=== PATIENT | female | born 2005 ===

== ENCOUNTER 2023-01-27 17:53 | Emergency (ER) | payer OTHER, SELFPAY ==
[2023-01-27 17:58] VITALS: BP 119/61; PULSE 85; RESP 18; TEMP 36.3; O2SAT 98; BMI 23.4
--- NOTE | 2023-01-27 18:16 | CRLHL7_ITS ---
For Patients: As a result of the Century Cures Act, medical imaging exams and procedure reports are released immediately into your electronic medical record. You may view this report before your referring provider. If you have questions, please contact your health care provider. INDICATION: Abdominal pain. TECHNIQUE: CT abdomen and pelvis acquired with 71 cc Isovue 370 IV contrast. COMPARISON: None. FINDINGS: Lower chest: Unremarkable. Liver: Unremarkable. Normal in size and attenuation. No suspicious masses. Gallbladder and bile ducts: Unremarkable. No stones or inflammation. No biliary dilatation. Pancreas: Unremarkable. No mass or inflammation. Spleen: Subtle ill-defined heterogeneity, likely related to perfusional changes/phase of contrast. Normal in size. No masses. Adrenal glands: Unremarkable. No nodules. Kidneys: Unremarkable. No suspicious masses, stones, or hydronephrosis. GI tract: Mild colonic stool burden. Normal in caliber. No sign of mass or inflammation. Appendix not definitely seen, however no right lower quadrant inflammatory changes. Vasculature: Abdominal aorta is normal in caliber. Mesenteric arteries are patent. Lymph nodes: No lymphadenopathy. Peritoneum/Abdominal Wall: Unremarkable. No sign of mass or infiltration. No free air or significant free fluid. Pelvis: Trace free fluid in the pelvis, likely physiologic. Bones: Unremarkable for age. IMPRESSION: Trace free fluid in the pelvis, likely physiologic. Otherwise, no acute intra-abdominal/pelvic abnormality. Mild colonic stool burden. Please note that all CT scans at this facility use dose modulation, iterative reconstruction, and/or weight-based dosing when appropriate to reduce radiation dose to as low as reasonably achievable. Dictated by Carlos Odell MD @ 01/27/2023 7:07:58 PM (Electronically Signed)
--- NOTE | 2023-01-27 18:18 | ED_ITS ---
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 Pain is in the epigastrium with occasional pain in the lower abdomen as well. She has had no chest pain shortness with orthopnea or PND. She has had no nausea no vomiting. Patient has a family history of inflammatory bowel disease but has no personal history. She did have some blood in her stool several days ago which has resolved. She has also had some diarrhea. Patient has a history of reflux but is no longer on omeprazole. She states that the pain in the epigastrium is similar to her reflux symptoms but lower. Patient has had no recent travel. She has had no change in her diet. 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 Patient states that she is not . Related Data Home Medications Medication Instructions Recorded Confirmed escitalopram oxalate 5 mg tablet 5 mg PO BID 01/27/23 01/27/23 Allergies Allergy/AdvReac Type Severity Reaction Status Date / Time Penicillins Allergy Intermediate Rash Verified 01/27/23 18:42 Review of Systems Status of ROS Reports: 10 or more systems reviewed and unremarkable except as noted in History and below [facility] Medical History (Updated 01/27/23 @ 19:23 by William Jacobs MD) Anxiety ?F41.9 - Anxiety disorder, unspecified (ICD-10) Social History Smoking Status: Never smoker Do you use any of these nicotine containing products: None How often do you have a drink containing alcohol: monthly or less AUDIT-C Alcohol total score: 1 Non-prescribed substance use: denies use Exam Narrative: Exam Narrative: EXAM GENERAL: Patient appears comfortable and well. EYES: No scleral icterus. LYMPH: No supraclavicular or cervical lymphadenopathy. SKIN: Visible skin seen during exam normal or with benign process only. EXT: No dependent lower extremity pedal edema. HEART: Regular rate and rhythm with no murmurs, rubs, or gallops. LUNGS: Clear to auscultation bilaterally with no crackles or wheezes. ABD: Soft, non tender, non distended. PSYCH: Good eye contact, speech is not pressured. Const: Vital Signs, click to edit/add: Vital Signs - 24 hr 01/27/23 17:58 Temperature 97.4 F L Pulse Rate [Pulse Oximeter] 85 Respiratory Rate 18 Blood Pressure [Ri ght Upper Arm] 119/61 Pulse Oximetry 98 Oxygen Delivery Me thod Room Air Course Course Hospital Course: Patient seen examined. Saline lock placed. Collected CBC CMP amylase urinalysis CT abdomen and pelvis. Vital Signs Vital signs: Initial Vital Signs Temperature 97.4 F L 01/27/23 17:58 Temperature Source Temporal Artery Scan 01/27/23 17:58 Pulse Rate 85 01/27/23 17:58 Respiratory Rate 18 01/27/23 17:58 Blood Pressure 119/61 01/27/23 17:58 Blood Pressure Mean 80 01/27/23 17:58 Pulse Oximetry 98 01/27/23 17:58 Oxygen Delivery Method Room Air 01/27/23 17:58 Vital Signs Temperature 97.4 F L 01/27/23 17:58 Pulse Rate 85 01/27/23 17:58 Respiratory Rate 18 01/27/23 17:58 Blood Pressure 119/61 01/27/23 17:58 Pulse Oximetry 98 01/27/23 17:58 Oxygen Delivery Method Room Air 01/27/23 17:58 Temperature 97.4 F L 01/27/23 17:58 Pulse Rate 85 01/27/23 17:58 Respiratory Rate 18 01/27/23 17:58 Blood Pressure 119/61 01/27/23 17:58 Pulse Oximetry 98 01/27/23 17:58 Oxygen Delivery Method Room Air 01/27/23 17:58 MDM - Abdominal Pain MDM Narrative Medical decision making narrative: Patient is a 17-year-old [place] [employer] student who presents with 6 days of abdominal pain. She has mild epigastric pain as well as crampy lower abdominal pain. laboratory studies including CBC CMP amylase are normal upon my review. CT of the abdomen pelvis is unremarkable. My exam today including vital signs also normal. This time I did recommend symptomatic treatment with Tylenol Motrin rest and fluids. I also recommended a 2 week course of omeprazole 20 mg in the morning daily. She will follow-up with her primary physician not improved. Differential Diagnosis Differential diagnosis: Likely abdominal pain, acute appendicitis, calculus of kidney, constipation, diverticulitis, endometriosis, gastroenteritis, pancreatitis and small bowel obstruction Lab Data Labs: Lab Results 01/27/23 Range/Units 18:30 WBC 6.88 (4.50-11.00) K/uL RBC 3.94 L (4.00-5.20) m/uL Hgb 12.5 (12.0-16.0) gm/dL Hct 38.2 (33.0-51.0) % MCV 97 (80-100) fL MCH 32 (26-34) pg MCHC 33 (32-36) gm/dL RDW Coeff of Tristan 12.0 (11.5-15.5) % Plt Count 234 (140-440) K/uL Neut % (Auto) 52.4 (42.0-72.0) % Lymph % (Auto) 38.4 (20-44) % [place] % (Auto) 6.3 (0.0-11.0) % Eos % (Auto) 2.2 (0.0-7.0) % Baso % (Auto) 0.6 (0.0-3.0) % Neut # (Auto) 3.61 (1.7-7.0) K/uL Lymph # (Auto) 2.64 (0.90-2.90) K/uL [place] # (Auto) 0.40 (0.00-0.90) K/UL Eos # (Auto) 0.15 (0.00-0.50) K/uL Baso # (Auto) 0.04 (0.00-0.30) K/uL Sodium 137 (135-149) mmol/L Potassium 4.2 (3.6-5.1) mmol/L Chloride 105 (96-114) mmol/L Carbon Dioxide 28 (20-32) mmol/L BUN 15 (5-24) mg/dL Creatinine 0.9 (0.6-1.2) mg/dL Estimated Creat Clear 94.12 Estimated GFR 94 ml/min Glucose 95 (60-115) mg/dL Calcium 8.6 L (8.7-10.8) mg/dL Total Bilirubin 0.5 (0.1-1.5) mg/dL AST 33 (12-35) U/L ALT 21 (4-35) U/L Alkaline Phosphatase 99 (40-150) U/L Total Protein 7.0 (6.0-8.3) g/dL Albumin 4.1 (3.3-5.0) g/dL Amylase 78 (18-89) U/L Urine Color Yellow (Yellow) Urine Appearance Clear (Clear) Urine pH 7.5 (5.0-8.5) Ur Specific [place] 1.015 (1.000-1.030) Urine Protein Negative (Negative) Urine Glucose (UA) Negative (Negative) Urine Ketones Negative (Negative) Urine Blood Negative (Negative) Urine Nitrite Negative (Negative) Urine Bilirubin Negative (Negative) Urine Urobilinogen 0.2 (0.2-1.0) Ur Leukocyte Esterase Negative (Negative) Discharge Plan Discharge Clinical Impression: Abdominal pain Patient Disposition: Home, Self-Care Condition: Stable Instructions: Abdominal Pain (ED) Additional Instructions: Advance diet activity as tolerated Tylenol Motrin as needed for pain Drink plenty of fluids. Omeprazole [id number] as Prilosec OTC 20 mg daily in the morning for 14 days. Activity Level: No Restrictions Discharge Diet: Regular Prescriptions: No Action escitalopram oxalate 5 mg tablet 5 mg PO BID Follow Up/Referrals: Provider,Not a Local [Primary Care Provider] - Stand Alone Forms: App Press Info Instructions
[2023-01-27 18:46] LABS: Appearance Urine Clear (Clear); Bilirubin Urine Negative (Negative); Blood Urine Negative (Negative); Color Urine Yellow (Yellow); Glucose Urine Negative (Negative); Ketones Urine Negative (Negative); Leukocyte Esterase Urine Negative (Negative); Nitrite Urine Negative (Negative); Protein Urine Negative (Negative); Specific Gravity Urine 1.015 (1.000-1.030); Urobilinogen Urine 0.2 (0.2-1.0); pH Urine 7.5 (5.0-8.5)
[2023-01-27 18:52] LABS: Basophils Absolute Auto 0.04 K/uL (0.00-0.30); Basophils Percent Auto 0.6 % (0.0-3.0); Eosinophils Absolute Auto 0.15 K/uL (0.00-0.50); Eosinophils Percent Auto 2.2 % (0.0-7.0); Hematocrit 38.2 % (33.0-51.0); Hemoglobin* 12.5 gm/dL (12.0-16.0); Immature Granulocytes Abs Auto 0.01 K/uL (0.00-0.30); Immature Granulocytes Pct Auto 0.1 %; Lymphocytes Absolute Auto 2.64 K/uL (0.90-2.90); Lymphocytes Percent Auto 38.4 % (20-44); Mean Corpuscular HGB Conc 33 gm/dL (32-36); Mean Corpuscular Hemoglobin 32 pg (26-34); Mean Corpuscular Volume 97 fL (80-100); Monocytes Percent Auto 6.3 % (0.0-11.0); Neutrophils Absolute Auto 3.61 K/uL (1.7-7.0); Neutrophils Percent Auto 52.4 % (42.0-72.0); Platelet Count* 234 K/uL (140-440); Red Blood Count 3.94 m/uL (4.00-5.20); White Blood Count* 6.88 K/uL (4.50-11.00)
[2023-01-27 18:53] LABS: Slide Review Reflex No
[2023-01-27 19:09] LABS: Albumin* 4.1 g/dL (3.3-5.0); Chloride* 105 mmol/L (96-114); Potassium* 4.2 mmol/L (3.6-5.1); Sodium* 137 mmol/L (135-149)
[2023-01-27 19:12] LABS: Alanine Aminotransferase* 21 U/L (4-35); Alkaline Phosphatase* 99 U/L (40-150); Aspartate Amino Transferase* 33 U/L (12-35); Bilirubin Total* 0.5 mg/dL (0.1-1.5); Blood Urea Nitrogen* 15 mg/dL (5-24); Calcium* 8.6 mg/dL (8.7-10.8); Carbon Dioxide* 28 mmol/L (20-32); Creatinine* 0.9 mg/dL (0.6-1.2); Est. Creatinine Clearance* 94.12; Estimated Glomerular Filt Rate 94 ml/min; Glucose* 95 mg/dL (60-115)
[2023-01-27 19:13] LABS: Amylase* 78 U/L (18-89)
== END 2023-01-27 19:59 | disposition home or self-care (01) ==
PROVIDERS: Emergency Provider Internal Medicine
DX: R10.9 Unspecified abdominal pain (principal)
CPT/HCPCS: 36415; 74177; 80053; 81003; 82150; 85025; 99283; 99284; 99285; Q9967

== ENCOUNTER 2023-05-30 13:29 | Outpatient (CLI) | payer OTHER, SELFPAY ==
--- NOTE | 2023-05-30 14:00 | CRLHL7_ITS ---
For Patients: As a result of the Century Cures Act, medical imaging exams and procedure reports are released immediately into your electronic medical record. You may view this report before your referring provider. If you have questions, please contact your health care provider. Indication: CHRONIC SINUSITIS Technique: Performed without IV contrast Comparison: None available Findings: Frontal sinuses: Clear. Ethmoid sinuses: Patchy opacification of the left posterior ethmoid air cells. Clear right ethmoid sinus. Maxillary sinuses: Small mucous retention cysts within the maxillary sinuses measuring up to 8 millimeters. Mild mucosal thickening within the maxillary sinuses present as well. The maxillary sinus drainage pathways are patent on both sides. Sphenoid sinuses: Clear, including both sphenoethmoidal recesses. Nasal Cavity: Leftward curvature nasal septum. Paradoxical turn of the right middle turbinate. No TMJ abnormalities identified. The visualized portions of the orbits, intracranial contents and upper soft tissue neck are grossly negative. Impression: 1. Mild bilateral maxillary sinus disease and mild left ethmoid sinus disease. 2. Leftward curvature of the anterior nasal septum. Please note that all CT scans at this facility use dose modulation, iterative reconstruction, and/or weight-based dosing when appropriate to reduce radiation dose to as low as reasonably achievable. Dictated by Familia Lopez MD @ 05/31/2023 8:26:49 AM (Electronically Signed)
== END 2023-05-30 13:30 | disposition home or self-care (01) ==
PROVIDERS: Visit Provider Otolaryngology
DX: J32.9 Chronic sinusitis, unspecified (principal); J32.0 Chronic maxillary sinusitis; J34.2 Deviated nasal septum
CPT/HCPCS: 70486

== ENCOUNTER 2023-07-24 19:57 | Outpatient (CLI) | payer OTHER, SELFPAY ==
--- NOTE | 2023-08-06 08:27 | W.PM.SLEEP ---
Sleep Study Details Details Interpreting Provider: Francisco Date of Sleep Study: 07/24/23 Sleep Study Details: STUDY TYPE:? Home unattended ? BMI:? 23.4 ORDERING PROVIDER:Jing Singh INDICATION:? Concerns about sleep apnea ? SLEEP SUMMARY:? 296.7 minutes monitored RESPIRATORY SUMMARY:? AHI 2.4 with minimal positional variation Low oxygen 83 8.1% of study oxygen less than 90% Snoring 5.4% PERIODIC LIMB MOVEMENTS OF SLEEP:? Not recorded during home study CARDIAC:? Range 41-119, mean 57.7 IMPRESSION:? The AHI is within normal limits. However there was significant oxygen desaturations during 8.1% of the study. Would recommend a repeat overnight oximetry study. If sleep disorder is strongly suspected would recommend an in-lab study with MSLT to follow. RECOMMENDATION: See impression
== END 2023-07-24 19:58 | disposition home or self-care (01) ==
PROVIDERS: Visit Provider Otolaryngology
DX: G47.30 Sleep apnea, unspecified (principal); G47.10 Hypersomnia, unspecified; R06.83 Snoring
CPT/HCPCS: 95806

== ENCOUNTER 2023-08-23 10:33 | Day surgery (SDC) | payer OTHER, SELFPAY ==
[2023-08-23] VITALS (10 sets, daily range): BP systolic 99–116; BP diastolic 53–74; PULSE 52–93; RESP 14–20; TEMP 36.2–36.6; O2SAT 99–100; BMI 22.6
[2023-08-23 11:07] LABS: Ur HCG Qualitative* Negative (Negative)
[2023-08-23] MEDS: LACTATED RINGERS 1000 ML 1,000 ML 100 ML IV (11:20)
[2023-08-23] MEDS: SODIUM CHLORIDE 0.9 % (FLUSH) 10 ML SYRINGE IVF (11:23)
[2023-08-23] MEDS: ETHYL CHLORIDE 1 APPLICATION 1 APPLIC TOPICAL (11:23)
[2023-08-23] MEDS: OXYMETAZOLINE (AFRIN) SOAK 1 EACH TOPICAL (11:38)
[2023-08-23] MEDS: COCAINE HCL 4 % 4 ML SOLUTION NOSTRIL-B (12:33)
[2023-08-23] MEDS: MUPIROCIN 1 GM PACKET 1 APPLIC TOPICAL (12:40)
[2023-08-23] MEDS: AYR SALINE NASAL GEL 1 APPLIC NOSTRIL-B (12:41)
[2023-08-23] MEDS: BUPIVACAINE 0.5%/EPINEPHRINE 0.9 MG (30.9 ML) INJECTION (12:48)
--- NOTE | 2023-08-23 12:52 | P.ENTPROC_ITS ---
Procedure Note Date of procedure: 08/23/23 Procedure: Preoperative diagnosis nasal obstruction, nasal headaches, recurrent bilateral maxillary rhinosinusitis, septal deviation, inferior turbinate hypertrophy right, right middle turbinate hypertrophy, chronic mucosal changes bilateral max illary sinuses Postoperative diagnosis same Procedure nasal septoplasty, submucous partial resection right inferior turbinate, endoscopic bilateral maxillary antrostomies with tissue removal utili zing image guidance Under general endotracheal anesthesia patient was prepped draped usual fashion nose decongested and injected. Septal deflection was limited area 3 and 4. The mucosa anterior to this was incised on the left-hand side and with a vertical incision. Mucosa was elevated from the septal deviation. The Midland dissector was used to cut through the cartilage and then elevated tunnel on the opposite side. Deflected portions of cartilage and bone were resected. A single piece was trimmed and returned to intraseptal space in the flap laid back down nicely. A stab incision was made in the anterior of the right inferior turbinate a tunnel created with a Midland dissector. The edi bone was outfractured and a conservative anterior submucous resection performed. The Coblation Wand was used to cauterize intramurally along the inferior 10% more posteriorly and for hemostasis. The right middle turbinate was medialized and crushed with the Huseyin forceps. The inferior quarter of the uncinate process was taken down and the opening the maxillary sinus enlarged to an 8 mm diameter. There was a moderate amount of polypoid mucosa surrounding the opening. This antrostomy was repeated on the left side in identical fashion. Specimens from the sinus os were labeled separately right and left and sent to pathology. A Merocel pack coated in Bactroban was placed in the middle meatus on each side. The patient procedure well was taken recovery in satisfactory condition. Blood loss during procedure less than 10 mL. Surgeon: Julio Dimas MD
--- NOTE | 2023-08-23 13:06 | W.ANESCHARGE ---
Anesthesia Charges Start Date/Time Anesthesia Start Date: 08/23/23 Anesthesia Start Time: 12:16 Stop Date/Time Anesthesia Stop Date: 08/23/23 Anesthesia Stop Time: 13:07
== END 2023-08-23 14:17 | disposition home or self-care (01) ==
PROVIDERS: Visit Provider Otolaryngology
PROC: (CPT 31231; principal; 2023-08-23 12:00)
DX: J34.2 Deviated nasal septum (principal); J32.0 Chronic maxillary sinusitis; J34.3 Hypertrophy of nasal turbinates; R51.9 Headache, unspecified
CPT/HCPCS: 30520; 30140; 31267; 00160; 81025; 88305; A9270; J0330; J1100; J2250; J2405; J2704; J3010; J7120

== ENCOUNTER 2024-01-17 08:01 | Outpatient (CLI) | payer OTHER, SELFPAY ==
[2024-01-17 09:23] LABS: Vitamin D 25 Hydroxy* 78 ng/mL (30-80)
[2024-01-18 20:25] LABS: Follicle Stimulating Hormone 4.7 IU/L; Luteinizing Hormone, Serum 10.8 IU/L
[2024-01-18 20:45] LABS: Total T3 115 ng/dL (80-200)
[2024-01-18 21:55] LABS: DHEAS 175 ug/dL (148-407)
[2024-01-21 17:25] LABS: Sex Hormone Binding Globulin 30 nmol/L (25-122); Testosterone, Free LC-MS/MS 4.4 pg/mL (0.8-7.4); Testosterone, LC-MS/MS 25 ng/dL (9-55)
== END 2024-01-17 08:02 | disposition home or self-care (01) ==
DX: N91.4 Secondary oligomenorrhea (principal); E55.9 Vitamin D deficiency, unspecified
CPT/HCPCS: 36415; 82306; 82627; 83001; 83002; 84270; 84402; 84403; 84443; 84480

== ENCOUNTER 2025-05-22 08:40 | Inpatient (IN) | payer OTHER, SELFPAY ==
--- OUTSIDE RECORDS SUMMARY | 2024-02-10 19:00 | XMS_ITS | Clinical Summary ---
Author Organization [facility] Address [address] [facility] [address] [place] [address] Care Team Providers Care Sales And Marketing Associate Name Role Phone JIL ZULEYMA Primary Care Physician Unavailab elam [phone] Attending Clinician Unavailable Payers Payer Name Policy Type Policy Number Effective Date Expira tion Date [facility] [id number] 2022-Pre [address] [address] [address]FPI [id number] 2022 00:00:00 Problems Condition Name Condition Details Condition Category Status Onset Date Resolution Date Last Treatment Date Treating Clinician Comments Hypothalami c hypogonadis m [id number] 05-08 00:00: 00 2023-05-08 00:00:00 Concussion with loss of consciousne ss [id number] 2020-09 00:00: 00 2021-09-01 00:00:00 Depressed mood [id number] 02-10 00:00: 00 2021-02-10 00:00:00 Recurrent sinus infections [id number] 06-08 00:00: 00 2019-06-08 00:00:00 Allergies, Adverse Reactions, Alerts Allergy Name Allergy Type Status Severity Reaction(s) Onset Date Inactive Date Treating Clinician Comments PENICILLINS Drug allergy Active 2009-07 00:00:0 0 Social History Patient History Answer Smoking Tobacco Use Never Smokeless Tobacco Use Never Passive Exposure Never Social Habit Start Date Stop Date Comments Gender identity Not on file Sexual orientation Not on fi le Tobacco use and exposure 2023-05-13 00:00:00 2023-04-30 4 00:00:00 Smoking Status Start Date Stop Date History of tobacco use History of tobacco use Never smoked tobacco 2023-05-13 00:00:00 Never smoked tobacco 2023-05-13 00:00:00 Social History Observation Date Gender identity Not on file 2023-09-24 15:34 :44 Medications Ordered Medication Name Filled Medication Name Start Date Stop Date Current Medication? Ordering Clinician Indication Dosage Frequency Signature (SIG) Comments Components norethindrn a-e estradiol-i lay (Loestrin Fe 10/19 (28-Day)) 1-20 mg-mcg TABS 2022-09 00:00: 00 Yes NPI 1{tbl} escitalopra m oxalate 10 mg tablet 2022-09 00:00: 00 02-12 00:00 :00 No NPI meloxicam (Mobic) 15 mg tablet 2022-09 00:00: 00 Yes Historical Provider 15mg escitalopra m oxalate 5 mg tablet 2022-09 00:00: 00 Yes NPI 5mg mupirocin (Bactroban) 2 % ointment 05-09 00:00: 00 05-09 06:59 :00 No Historical Provider predniSONE (Deltasone) 10 mg tablet 03-06 00:00: 00 Yes Historical Provider budesonide (Pulmicort) 0.5 mg/2 mL inhalation suspension 03-06 00:00: 00 03-01 06:59 :00 No Historical Provider .5mg cefdinir (OMNICEF) 300 mg capsule -18 00:00: 00 Yes Historical Provider 600mg norgestimat e-ethinyl estradioL (Tri-Sprint ec (28)) 0.18/0.215/ 0.25 mg-35 mcg TABS 8- 00:00: 00 Yes Historical Provider escitalopra m oxalate (Lexapro) 5 mg TABS 4-16 00:00: 00 Yes Historical Provider 5mg cefadroxil (DURICEF) 500 mg capsule 2021-0 2-10 00:00: 00 Yes Historical Provider Immunizations Ordered Immunization Name Filled Immunization Name Date Status Comments Refusal Reason Influenza, injectable, quadrivalent, preservative free 0.5 ml syringe [FLUZONE] Influenza, injectable, quadrivalent, preservative free 0.5 ml syringe [FLUZONE] 2022-08-28 00:00:00 Influenza, injectable, quadrivalent, preservative free 0.5 ml syringe [FLUZONE] Influenza, injectable, quadrivalent, preservative free 0.5 ml syringe [FLUZONE] 2022-08-28 00:00:00 Flu vaccine (IIV4), preservative-free 2022-08-28 00:00:00 meningococcal B vaccine, recombinant, OMV, adjuvanted meningococcal B vaccine, recombinant, OMV, adjuvanted 2022-05-02 00:00:00 Meningococcal B, OMV (Bexsero) 2022-05-02 00:00:00 meningococcal B vaccine, recombinant, OMV, adjuvanted meningococcal B vaccine, recombinant, OMV, adjuvanted 2022-04-04 00:00:00 Meningococcal B, OMV (Bexsero) 2022-04-04 00:00:00 COVID-19, mRNA, LNP-S, PF, 30 mcg/0.3 mL dose COVID-19, mRNA, LNP-S, PF, 30 mcg/0.3 mL dose 2021-09-27 00:00:00 SARS-COV-2 (COVID-19) vaccine, mRNA, spike protein, LNP, preservative free, 30 mcg/0.3mL dose SARS-COV-2 (COVID-19) vaccine, mRNA, spike protein, LNP, preservative free, 30 mcg/0.3mL dose 2021-09-27 00:00:00 Pfizer monovalent COVID-19 vaccine (PURPLE CAP) 2021-09-27 00:00:00 COVID-19, mRNA, LNP-S, PF, 30 mcg/0.3 mL dose COVID-19, mRNA, LNP-S, PF, 30 mcg/0.3 mL dose 2021-02-03 00:00:00 COVID-19, mRNA, LNP-S, PF, 30 mcg/0.3 mL dose COVID-19, mRNA, LNP-S, PF, 30 mcg/0.3 mL dose 2021-01-10 00:00:00 SARS-COV-2 (COVID-19) vaccine, mRNA, spike protein, LNP, preservative free, 30 mcg/0.3mL dose SARS-COV-2 (COVID-19) vaccine, mRNA, spike protein, LNP, preservative free, 30 mcg/0.3mL dose 2021-02-03 00:00:00 Pfizer monovalent COVID-19 vaccine (PURPLE CAP) 2021-02-03 00:00:00 SARS-COV-2 (COVID-19) vaccine, mRNA, spike protein, LNP, preservative free, 30 mcg/0.3mL dose SARS-COV-2 (COVID-19) vaccine, mRNA, spike protein, LNP, preservative free, 30 mcg/0.3mL dose 2021-01-10 00:00:00 [employer] monovalent COVID-19 vaccine (PURPLE CAP) 2021-01-10 00:00:00 Meningococcal, MCV4, unspecified conjugate formulation(groups A, C, Y and W-135) Meningococcal, MCV4, unspecified conjugate formulation(groups A, C, Y and W-135) 2020-05-03 00:00:00 Meningococcal MenACWY-D (Menactra) 2020-05-03 00:00:00 Human Papillomavirus 9-valent vaccine vial [GARDASIL 9] Human Papillomavirus 9-valent vaccine vial [GARDASIL 9] 2019-03-02 00:00:00 HPV, 9-valent (Gardasil 9) 2019-03-02 00:00:00 Human Papillomavirus 9-valent vaccine vial [GARDASIL 9] Human Papillomavirus 9-valent vaccine vial [GARDASIL 9] 2018-03-03 00:00:00 HPV, 9-valent (Gardasil 9) 2018-03-03 00:00:00 Tdap (> 7 yrs) 2015-01-24 00:00:00 Meningococcal MenACWY-D (Menactra) 2015-01-24 00:00:00 Flu vaccine 3yr+ TRI (PF) 2012-10-27 00:00:00 Flu vaccine 3yr+ TRI (PF) 2009-08-01 00:00:00 PPD 2009-02-28 00:00:00 DTaP 2009-01-26 00:00:00 Polio, inactivated (IPV) (Ipol) 2009-01-26 00:00:00 MMR (M-M-R II) 2008-01-16 00:00:00 Varicella (Varivax) 2008-01-16 00:00:00 Hep A, pediatric/adolescent 2007-01-29 00:00:00 Hep A, pediatric/adolescent 2006-01-08 00:00:00 DTaP 2005-06-27 00:00:00 MMR (M-M-R II) 2005-03-06 00:00:00 Varicella (Varivax) 2005-03-06 00:00:00 Pneumococcal conjugate (PCV7) (Prevnar 7) 2004-12-27 00:00:00 Hib-Hep B (Comvax) 2004-12-27 00:00:00 DTaP 2004-08-07 00:00:00 Flu Vaccine 6-35 months old 2004-08-07 00:00:00 Pneumococcal conjugate (PCV7) (Prevnar 7) 2004-06-28 00:00:00 Polio, inactivated (IPV) (Ipol) 2004-06-28 00:00:00 DTaP 2004-05-01 00:00:00 Hib,unspecified formulation 2004-05-01 00:00:00 Pneumococcal conjugate (PCV7) (Prevnar 7) 2004-05-01 00:00:00 Polio, inactivated (IPV) (Ipol) 2004-05-01 00:00:00 DTaP 2004-03-02 00:00:00 Hib-Hep B (Comvax) 2004-03-02 00:00:00 Pneumococcal conjugate (PCV7) (Prevnar 7) 2004-03-02 00:00:00 Polio, inactivated (IPV) (Ipol) 2004-03-02 00:00:00 Hep B, pediatric/adolescent 2003 00:00:00 Reason for Visit ReasonCommentsMedication Refill Health Concerns Section Text Date PHQ-9 Depression Total Score: 2 Unknown PHQ-2 Depression Total Score: 0 Unknown CARE TEAM Source Name Role Start Date End Date [facility] Care Care Team Zuleyma Cedillo DO Primary Care Provider active 2009-06-08 [facility] Care Team Zuleyma Cedillo DO [phone] active 2009-06-01
--- OUTSIDE RECORDS SUMMARY | 2025-04-21 11:30 | XMS_ITS | Encounter Summary ---
Author Organization [facility] and [facility] Practices Address [address] [place] [address] Care Team Providers Care Slipman Name Role Phone Joel Laquita EUBANKS Primary Care Provider [phone] Encounter Details Date Type Department Care Team (Latest Contact Info) Description 04/21/2025 9:30 AM PDT Ancillary Visit [facility] [id number] [place] [address] Laboratory examination ordered as part of a routine general medical examination; Hypothalamic hypogonadism (CMS/HCC); Routine screening for STI (sexually transmitted infection) Social History Tobacco Use Types Packs/Day Years Used Date Smoking Tobacco: Never Smokeless Tobacco: Never Alcohol Use Standard Drinks/Week Comments Yes 2 (1 standard drink = 0.6 oz pur e alcohol) not weekly AUDIT-C Answer Date Recorded Frequency of Alcohol Consumption Never 12/11/2018 Average Number of Drinks Not on file 019 Frequency of Binge Drinking Not on file 11/28 Overall Financial Resource Strain (CARDIA) Answe r Date Recorded How hard is it for you to pa y for the very basics like food, housing, medical care, and heating? Not very hard 03/11/2025 Hunger Vital Sign Answer Date Recorded Within the past 12 months, y ou worried that your food would run out before you got the money to buy more. Never true 03/11/20 25 Ran Out of Food in the Last Year Not on file 03/11/2025 PRAPARE - Transportation Answer Date Re corded In the past 12 months, has l ack of transportation kept you from medical appointments or from getting medications? No 03/11/2025 Lack of Transportation (Non-Medical) Not on file 03/11/2025 Housing Stability Vital Sign Answer Rojelio e Recorded Unable to Pay for Housing in the Last Year Not o n file 04/13/2024 Number of Places Lived in the Last Year Not on f ile 04/13/2024 In the last 12 months, was t here a time when you did not have a steady place to sleep or slept in a alf (including now)? No 04/13/2024 Housing Stability Vital Sign Answer Rojelio e Recorded Unable to Pay for Housing in the Last Year Not o n file 03/11/2025 Number of Times Moved in the Last Year Not on fi le 03/11/2025 At any time in the past 12 m onths, were you homeless or living in a alf (including now)? No 03/11/2025 Core Social Determinants of Health Screening Questions Answer Date Recorded Within the past 12 months, y ou worried that your food would run out before you got the money to buy more. Never true 03/11/2025 Food Insecurity Food Insecurity Present 03/11/20 25 At any time in the past 12 m onths, were you homeless or living in a alf (including now)? No 03/11/2025 How hard is it for you to pa y for the very basics like food, housing, medical care, and heating? Not very hard 03/11/2025 Physically Abused Not on file 03/11/2025 CORE SDOH Hidden Transportation Domain Source An swer Date Recorded In the past 12 months, has l ack of transportation kept you from medical appointments or from getting medications? No 03/11/2025 Lack of Transportation (Non-Medical) Not on file 03/11/2025 Comments Unknown Sex and Gender Information Value Date Recorded Sex Assigned at Not on file Legal Sex Female 1:12 PM PST Gender Identity Not on file Sexual Orientation Not on file documented as of this encounter Plan of Treatment Not on file documented as of this encounter Procedures Procedure Name Priority Date/Time Associated Diagnosis Comments NC CHYLMD TRACH DNA AMP PROBE Routine 04/21/2025 9:30 AM PDT Routine screening for STI (sexually transmitted infection) NC HEPATITIS C AB TEST Routine 04/21/2025 9:15 AM PDT Laboratory examination ordered as part of a routine general medical examination NC ASSAY OF CALCIUM IONIZED Routine 04/21/2025 9:15 AM PDT Hypothalamic hypogonadism (CMS/HCC) NC ASSAY OF VITAMIN D CALCIFEDIOL Routine 04/21/2025 9:15 AM PDT Hypothalamic hypogonadism (CMS/HCC) THYROID SCREEN (TSH) W/ REFLEX FREE T4 Routine 04/21/2025 9:15 AM PDT Hypothalamic hypogonadism (CMS/HCC) PTH, INTACT & CALCIUM Routine 04/21/2025 9:15 AM PDT Hypothalamic hypogonadism (CMS/HCC) NC LIPID PANEL Routine 04/21/2025 9:15 AM PDT Laboratory examination ordered as part of a routine general medical examination NC GLYCOSYLATED HEMOGLOBIN TEST Routine 04/21/2025 9:15 AM PDT Laboratory examination ordered as part of a routine general medical examination NC ASSAY OF FERRITIN Routine 04/21/2025 9:15 AM PDT Hypothalamic hypogonadism (CMS/HCC) COMPREHENSIVE METABOLIC PANEL W GFR Routine 04/21/2025 9:15 AM PDT Laboratory examination ordered as part of a routine general medical examination NC GENERAL HEALTH PANEL Routine 04/21/2025 9:15 AM PDT Hypothalamic hypogonadism (CMS/HCC) documented in this encounter Results * GC & CHLAMYDIA NUCLEIC ACID AMPLIFICATION (04/21/2025 9:30 AM PDT) CHLAMYDIA AMP RESULT Not Detected Not Detected 04/21/2025 10:40 PM PDT [facility] [phone] GC AMP RESULT Not Detected Not Detected 04/21/2025 10:40 PM PDT [facility] [phone] Comment: Negative results do not exclude the possibility of infection. Interpretation of all results must include clinical evaluation of the patient and other diagnostic procedures. This test was performed by [facility] Nucleic Acid Amplification (PCR) methodology. Urine (Urine) 04/21/2025 9:3 0 AM PDT 04/21/2025 9:48 AM PDT Laquita Maldonado DO LAB MICROBIOLOGY Final Result [facility] [address] [place], [place] [address] [facility] [phone] [address] [place] [address] * PTH, INTACT & CALCIUM (04/21/2025 9:15 AM PDT) PTH,Intact 26 14 - 64 pg/mL 04/24/2025 1:52 PM PDT [facility] [phone] Comment: Note Interpretive Guide Intact PTH Calcium Normal Parathyroid Normal Normal Hypoparathyroidism Low or Low Normal Low Hyperparathyroidism Primary Normal or High High Secondary High Normal or Low Tertiary High High Non-Parathyroid Hypercalcemia Low or Low Normal High For additional information, please refer to http://education.[employer]/faq/XTY163 (This link is being provided for informational/educational purposes only.) Calcium 9.3 8.6 - 10.2 mg/dL 04/26/2025 11:54 AM PDT [facility] [phone] Serum (Blood) 04/21/2025 9:1 5 AM PDT 04/21/2025 9:47 AM PDT [facility]arr[facility] - 04/26/2025 11:54 AM PDT Patient fasting Laquita Maldonado DO LAB CHEMISTRY Final Result [facility] [address] [place] [address] [facility] [phone] [address] [place] [address] * CALCIUM, IONIZED (04/21/2025 9:15 AM PDT) Pathologist [facility] Ionized Calcium 1.26 1.11 - 1.30 mmol/L 04/21/2025 2:25 PM PDT [facility] [phone] Comment: This test was developed and its performance characteristics determined by [place], [place]. It has not been cleared or approved by the U.S. Food and Drug Administration, which has determined that such approval is not necessary. Blood (Blood) 04/21/2025 9:1 5 AM PDT 04/21/2025 9:47 AM PDT Narrative [facility] - 04/21/2025 2:25 PM PDT Patient fasting Laquita Maldonado DO LAB CHEMISTRY Final Result Performing Organization Address City/[facility]/ZIP Co de Phone Number [facility] [address] [place], [place] [address] [facility] [phone] [address] [place] [address] * FERRITIN (04/21/2025 9:15 AM PDT) [facility] Ferritin 19 12 - 252 ng/mL 04/21/2025 12:58 PM PDT [facility] Serum (Blood) 04/21/2025 9:1 5 AM PDT 04/21/2025 9:47 AM PDT [facility] - 04/21/2025 12:58 PM PDT Patient fasting Laquita Maldonado DO LAB CHEMISTRY Final Result [facility] [address] [place] [address] * VITAMIN D (25 HYDROXY) (04/21/2025 9:15 AM PDT) Pathologist [facility] VitD,25-Hydroxy Tot 68 20 - 80 ng/mL 04/21/2025 3:17 PM PDT [facility] [phone] Comment: This Total 25-OHD assay measures the sum of 25-hydroxy vitamin D metabolites (D2 and D3) All ages: 20-50 ng/mL* There is no known benefit of values > 50 ng/mL Values > 80 ng/mL may be associated with toxicity *In patients with risk factors such as bone disease, values between 20-29 ng/mL may be insufficient, and values greater than 30 ng/mL may be more appropriate. Serum (Blood) 04/21/2025 9:1 5 AM PDT 04/21/2025 9:47 AM PDT [facility] - 04/21/2025 3:17 PM PDT Patient fasting us Laquita Maldonado DO LAB CHEMISTRY Final Result Performing Organization Address City/[facility]/ZIP Co de Phone Number [facility] [address] [place] [address] [facility] [phone] [address] [place] [address] * THYROID SCREEN (TSH) W/ REFLEX FREE T4 (04/21/2025 9:15 AM PDT) Pathologist [facility] TSH 1.56 0.34 - 4.82 uIU/mL 04/21/2025 12:07 PM PDT [facility] [phone] Serum (Blood) 04/21/2025 9:1 5 AM PDT 04/21/2025 9:47 AM PDT [facility] - 04/21/2025 12:07 PM PDT Patient fasting Laquita Maldonado DO LAB CHEMISTRY Final Result [facility] [address] [place] [address] [facility] [phone] [address] [place] [address] * (ABNORMAL) CBC WITH AUTOMATED DIFFERENTIAL (04/21/2025 9:15 AM PDT) Pathologist [facility] White Blood Cell Count 5.1 4.0 - 11.0 K/uL 04/21/2025 10:42 AM PDT [facility] [phone] Red Blood Cell Count 4.16 3.90 - 5.40 M/uL 04/21/2025 10:42 AM PDT [facility] [phone] Hemoglobin 12.9 12.0 - 15.5 g/dL 04/21/2025 10:42 AM PDT [facility] [phone] Hematocrit 40.0 35.0 - 47.0 % 04/21/2025 10:42 AM PDT [facility] [phone] MCV 96 80 - 100 fL 04/21/2025 10:42 AM PDT [facility] [phone] MCH 31.0 27.0 - 33.0 pg 04/21/2025 10:42 AM PDT [facility] [phone] MCHC 32.3 31.0 - 36.0 g/dL 04/21/2025 10:42 AM PDT [facility] [phone] RDW 12.4 <16.4 % 04/21/2025 10:42 AM PDT [facility] [phone] Platelet Count 273 150 - 400 K/uL 04/21/2025 10:42 AM PDT [facility] [phone] Differential Type Automated 04/21/2025 10:43 AM PDT [facility] [phone] Neutrophil % 46 % 04/21/2025 10:43 AM PDT [facility] [phone] Lymphocyte % 32 % 04/21/2025 10:43 AM PDT [facility] [phone] Monocyte % 6 % 04/21/2025 10:43 AM PDT [facility] [phone] Eosinophil % 15 % 04/21/2025 10:43 AM PDT [facility] [phone] Basophil % 1 % 04/21/2025 10:43 AM PDT [facility] [phone] Abs. Neutrophil 2.4 1.5 - 8.0 K/uL 04/21/2025 10:43 AM PDT [facility] [phone] Abs. Lymphocyte 1.7 0.6 - 3.5 K/uL 04/21/2025 10:43 AM PDT [facility] [phone] Abs. Monocyte 0.3 0.0 - 0.8 K/uL 04/21/2025 10:43 AM PDT [facility] [phone] Abs. Eosinophil 0.8(H) 0.0 - 0.5 K/uL 04/21/2025 10:43 AM PDT [facility] [phone] Abs. Basophil 0.0 0.0 - 0.2 K/uL 04/21/2025 10:43 AM PDT [facility] [phone] Blood (Blood) 04/21/2025 9:1 5 AM PDT 04/21/2025 9:47 AM PDT Narrative [facility] - 04/21/2025 10:43 AM PDT Patient fasting Laquita Maldonado DO LAB HEMATOLOGY Final Result [facility] [address] [place] [address] [facility] [phone] [address] [place] [address] * COMPREHENSIVE METABOLIC PANEL W GFR (04/21/2025 9:15 AM PDT) Sodium 142 136 - 145 mmol/L 04/21/2025 12:07 PM PDT [facility] [phone] Potassium 4.5 3.5 - 5.1 mmol/L 04/21/2025 12:07 PM PDT [facility] [phone] Chloride 109 98 - 110 mmol/L 04/21/2025 12:07 PM PDT [facility] [phone] CO2 (Bicarbonate) 30 21 - 32 mmol/L 04/21/2025 12:07 PM PDT [facility] [phone] Glucose 87 70 - 99 mg/dL 04/21/2025 12:07 PM PDT [facility] [phone] BUN 19 6 - 25 mg/dL 04/21/2025 12:07 PM PDT [facility] [phone] Creatinine 1.00 0.40 - 1.00 mg/dL 04/21/2025 12:07 PM PDT [facility] [phone] Comment:IDMS-traceable metho d Calcium 9.2 8.2 - 10.2 mg/dL 04/21/2025 12:07 PM PDT [facility] [phone] Total Protein 6.6 6.4 - 8.2 g/dL 04/21/2025 12:07 PM PDT [facility] [phone] Albumin 3.4 3.2 - 4.7 g/dL 04/21/2025 12:07 PM PDT [facility] [phone] Total Bilirubin 0.4 <1.1 mg/dL 12:07 PM PDT [facility] [phone] Alkaline Phosphatase 79 26 - 137 U/L 04/21/2025 12:07 PM PDT [facility] [phone] AST 19 0 - 37 U/L 04/21/2025 12:07 PM PDT [facility] [phone] ALT 21 0 - 60 U/L 04/21/2025 12:07 PM PDT [facility] [phone] eGFR 82 >60 See Cmnt 04/21/2025 12:07 PM PDT [facility] [phone] Comment: Units: mL/min/1.73 m2. Estimated glomerular filtration rate values are calculated using the CKD-EPI Creatinine 2020 equation (non-race based). Serum (Blood) 04/21/2025 9:1 5 AM PDT 04/21/2025 9:47 AM PDT Narrative [facility] - 04/21/2025 12:07 PM PDT Patient fasting Laquita Maldonado DO LAB CHEMISTRY Final Result [facility] [address] [place] [address] [facility] [phone] [address] [place] [address] * HEMOGLOBIN A1C (04/21/2025 9:15 AM PDT) Hemoglobin A1c 5.1 3.5 - 5.6 % 04/21/2025 10:39 AM PDT [facility] [phone] Average Glucose 100 mg/dL 10:39 AM PDT [facility] [phone] Comment: Hemoglobin A1c 5.7-6.4% Increased Risk of diabetes mellitus > or = 6.5% Consistent with diabetes mellitus ADA Therapeutic goal <7% HbA1c Additional action suggested >8% HbA1c Immediate action suggested >10% HbA1c Estimated average glucose is calculated using the equation eAG = (28.7 x HbA1c) - 46.7 %Hb A1c Estimated Average Glucose(eAG)mg/dL 5 97 6 126 7 154 8 183 9 212 10 240 11 269 Method is [facility] certified References: 1. [place] [employer] Standards of Medical Care in Diabetes. Diabetes Care 2009 33:S11-S61 2. Chriss THOMPSON et al. Translating the A1c assay into estimated average glucose values. Diabetes Care 2007 31:9544-9614 Blood (Blood) 04/21/2025 9:1 5 AM PDT 04/21/2025 9:47 AM PDT Narrative [facility] - 04/21/2025 10:39 AM PDT Patient fasting Laquita Maldonado DO LAB CHEMISTRY Final Result [facility] [address] [place] [address] [facility] [phone] [address] [place] [address] * LIPID PROFILE (04/21/2025 9:15 AM PDT) Pathologist [facility] Total cholesterol 159 <200 mg/dL 025 12:07 PM PDT [facility] [phone] Comment: Desirable: <200 mg/dL Borderline: 200 to 239 mg/dL High: >240 mg/dL Triglyceride 47 <150 mg/dL 04/21/2025 12:07 PM PDT [facility] [phone] Comment: Normal: <150 mg/dL Borderline High: 150 to 199 mg/dL High: 200 to 499 mg/dL Very High: > or = 500 mg/dL HDL cholesterol 74 >40 mg/dL 12:07 PM PDT [facility] [phone] Comment: High: > or = 60 mg/dL Low: <40 mg/dL LDL Calculated 76 <130 mg/dL 04/21/2025 12:07 PM PDT [facility] [phone] Comment: Optimal: <100 mg/dL Near Optimal: 100 to 129 mg/dL Borderline High: 130 to 159 mg/dL High: 160 to 189 mg/dL Very High: > or = 190 mg/dL Cholesterol to HDL Ratio 2.1 <5.0 04/21/2025 12:07 PM PDT [facility] [phone] VLDL (Calculated) 9 5 - 40 mg/dL 04/21/2025 12:07 PM PDT [facility] [phone] Serum (Blood) 04/21/2025 9:1 5 AM PDT 04/21/2025 9:47 AM PDT [facility] - 04/21/2025 12:07 PM PDT Patient fasting Laquita Maldonado DO LAB CHEMISTRY Final Result [facility] [address] [place] [address] [facility] [phone] [address] [place] [address] * HEPATITIS C ANTIBODY RFLX HCV RNA PCR (04/21/2025 9:15 AM PDT) Hepatitis C Antibody Non Reactive Non Reactive 04/21/2025 3:43 PM PDT [facility] [phone] Comment:Antibodies to HCV no t detected. Does not exclude early acute HCV infection. 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
--- OUTSIDE RECORDS SUMMARY | 2025-04-26 10:40 | XMS_ITS | Encounter Summary ---
Author Organization [facility] Practices Address [address] [place] [address] Care Team Providers Care Supervisor Dried Yeast Name Role Phone Laquita Maldonado DO Primary Care Provider [phone] Reason for Visit * Reason Comments Medication check Meloxicam Encounter Details Date Type Department Care Team (Late st Contact Info) Description 04/26/2025 8:40 AM PDT Video Visit [facility] [address] [place] [address] Laquita Maldonado DO [address] [place] [address] Sprain of medial collateral ligament of right knee, subsequent encounter (Primary Dx) Social History Tobacco Use Types Packs/Day Years [...] place to sleep or slept in a longterm (including now)? No 04/13/2024 Housing Stability Vital Sign Answer Rojelio e Recorded Unable to Pay for Housing in the Last Year Not o n file 03/11/2025 Number of Times Moved in the Last Year Not on fi le 03/11/2025 At any time in the past 12 m onths, were you homeless or living in a longterm (including now)? No 03/11/2025 Core Social Determinants of Health Screening Questions Answer Date Recorded Within the past 12 months, y ou worried that your food would run out before you got the money to buy more. Never true 03/11/2025 Food Insecurity Food Insecurity Present 03/11/20 25 At any time in the past 12 m onths, were you homeless or living in a longterm (including now)? No 03/11/2025 How hard is [...] on file documented as of this encounter Progress Notes * Laquita Maldonado DO - 04/22/2025 9:19 AM PDT Assessment & Plan - VIDEO VISIT Patient/Parent/Legal Guardian gave verbal authorization to the use of ambient listening technology and third democrat audio recording to assist with this clinical encounter. Assessment & Plan 1. 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 History of multiple knee injuries over the past three years, requiring management of symptoms to maintain athletic performance. - Prescribe meloxicam 15 mg oral daily with food, 30-day supply with one refill, to be picked up [facility] in [facility] to send to [place], where she attends college @ [employer]. - Advise to take meloxicam with food or milk to minimize gastrointestinal side effects. - Discuss potential risks of long-term meloxicam use, including gastrointestinal ulceration, bleeding, liver and kidney injury, and effects on blood counts. - Monitor liver and kidney function, and blood counts annually as part of routine labs. - meloxicam (MOBIC) 15mg Tab; Take one Tab by mouth daily with food Dispense: 30 Tab; Refill: 1 Left knee injuries Left knee plica removal in 2019 and avulsion fracture of the tibia in 2016. Currently, the left knee is asymptomatic with no pain or inflammation reported in the past five years. Follow-up Currently at home and will return to [place] on May 16. Plans for medication refills while at school were discussed to ensure continuity of care. - Send meloxicam prescription to [facility] in [place], [place] if needed after returning to school. - Schedule routine lab monitoring in one year. Additionally, I am providing longitudinal care which includes continuously being the focal point for all of the patient's health care services and ongoing medical care related to the following diagnoses documented above: (S83.132D) Sprain of medial collateral ligament of right knee, subsequent encounter (primary encounter diagnosis) Subjective - VIDEO VISIT Arsen Carreon is 19 year old female (patient of Laquita Maldonado DO) with PMH significant for Patient Active Problem List Diagnosis Date Noted Surveillance for control, oral contraceptives 03/11/2025 Secondary oligomenorrhea 04/14/2024 - evaluated @ [facility] Dr. Griffith 03/18/2024: improved menstrual regularities with improved caloric intake. Some concern for PCOS with LH/FSH ratio. Testosterone and DHEA levels were wnl - working with form setter steel forms to improve proper fueling with soccer practices/game frequencies. - repeat LH, FSH, DHEA, TSH, T4, fT3, total T3 - soccer season start mid-Apr @ [employer] Anxiety 04/14/2024 Atrophy of quadriceps femoris muscle 04/14/2024 Maltracking of right patella 04/14/2024 MCL sprain of left knee 04/14/2024 Takes meloxicam PRN (up to 3d/week) for MCL sprain of b/l knee, but recently rt > lt. Lt knee fine, s/p medial plica removal. 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 Griffith ([facility]) 03/18/2024: improved menstrual regularities with improved caloric intake. Some concern for PCOS, but has never completed pelvic ultrasound. Testosterone and DHEA levels were wnl. 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 BMI normal and BMD normal. - Periods were only normal during COVID19 pandemic when she was at home - Normal thyroid function. - Continue follow-up with Dr. Griffith and sports health club membership advisors to increase caloric/nutritional intake - Reviewed [place] PCOS diagnosis criteria, which patient denies hyper androgenic features including hirsutism/acne/deepening of voice. will check pelvic ultrasound for polycystic ovaries. Explained that if ovaries are normal, then oligomenorrhea is likely 2/2 functional hypothalamic hypogonadism Strain of left quadriceps 04/28/2019 Nasal vestibulitis 03/10/2019 Chronic sinusitis s/p turbinate resection and septoplasty 12/11/2018 Snoring 12/11/2018 Tonsillar hypertrophy 12/11/2018 Acute atopic conjunctivitis 10/11/2010 Allergic rhinitis 11/23/2009 presenting today for evaluation of: History of Present Illness Arsen Carreon is a 19 year old female who presents for a #refill of meloxicam for right knee MCL sprain management. She has a history of multiple knee injuries over the past three years, primarily affecting her right knee. Currently, she is experiencing issues with her right knee due to an MCL sprain, which is exacerbated by her participation in college soccer. She manages inflammation and stiffness with meloxicam, taken approximately three times a week, depending on the intensity of her soccer practices and games. Her left knee has a history of a plica removal in 2019 and an avulsion fracture of the tibia in 2017. However, she reports no current pain or inflammation in that knee and has not had any injuries there in the past five years. 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 ROS: Except for what was stated above, the review of systems for constitutional, eyes, ears/nose/throat,neck, cardiovascular, respiratory, gastrointestinal, lymphatic, skin, genitourinary, musculoskeletal, endocrine, neurologic, and psychiatric was negative. Objective - VIDEO VISIT Physical assessment is limited due to video visit and instructions are given by provider to be performed by patient. There were no vitals taken for this visit. No O Home Vitals. Physical Exam: General Appearance: Alert, cooperative, no distress, appears stated age Respiratory: In no apparent respiratory distress, no visibile retractions, no audible wheezes, speaks in full sentences Skin: visualized areas of normal color, without pallor or rubor Video Visit Consent: The patient has given verbal or written consent for delivery of health care, via telehealth througha Video Visit appointment. Patient was using real-time Telehealth tools between my location and the patient's location which is confirmed to be in [place]. Prior to discussing medical issues, the patient provided informed verbal consent to perform this consultation using Telehealth tools, and all questions about the Telehealth interaction were answered. Patient confirms they are located in a safe location and within the state of [place]: YES Patient confirmed date of and the phone number where they can be reached in case video visit is disconnected. [phone] Dear Arsen Carreon: Although federal law now requires for digital medical records to be availablefor immediate access by patients, please remember that these notes are intended for communication between director of medical services and require medical terms to be used for accuracy and efficiency. They are not a comprehensive transcript of your visit and are not intended as a patient communication tool. Your doctor usually provides a patient-friendly after visit summary (AVS) associated with the visit with the diagnoses and treatment plan (please see your MHO manohar), particularly with regard to proper use of medications (e.g. duration, side effects) and suggestions for OTC products. Portions of this note may have been entered by my medical stenographer and/or by voice recognition software. I have reviewed and confirmed all information personally and amended the entries as necessary. Forestry Worker errors in syntax, word selection, grammar, and/or spelling may exist despite proofreading. Please contact me if you find any typographic errors. If you are reviewing this note and have questions about the content, please send me a message online. If a more detailed response is required, please schedule an appointment with us to discuss your specific concerns or bring it up at your next follow up visit. This note details my record of the events described at the time of the visit. It is part of a legalrecord and cannot be altered, even if subsequent information becomes available. Please remember that words and abbreviations used in a medical record may have different meanings than when they are used in common speech. If you feel there are errors in the content of this report, you may submit yourconcerns in writing to [email or web address] and [email or web address] so they may be addressed. The original report cannot be changed, however. documented in this encounter Nursing Notes * Fely Sharif MA - 04/26/2025 8:18 AM PDT Video Visit Consent:: The patient has given verbal or written consent for delivery of health care, via telehealth througha Video Visit appointment. Patient was using real-time Telehealth tools between my location and the patient's location which is confirmed to be in [place]. Prior to discussing medical issues, the patient provided informed verbal consent to perform this consultation using Telehealth tools, and all questions about the Telehealth interaction were answered. Patient confirms they are located in a safe location and within the state of [place]: Yes Patient states location at time of video visit is: at Home Address on File - [address] [facility] [address] Patient confirmed date of and the phone number where they can be reached in case video visit is disconnected. [phone] documented in this encounter Plan of Treatment Not on file documented as of this encounter Visit Diagnoses Diagnosis Sprain of medial collateral ligament of right knee, subsequent encounter- Primary documented in this encounter Care Teams Supervisor Dried Yeast Relationship Specialty Start Date End Date Laquita Maldonado DO [address] [place] [address] PCP - General Family Medicine 01/17/24 documented as of this encounter
--- OUTSIDE RECORDS SUMMARY | 2025-05-08 11:30 | XMS_ITS | Encounter Summary ---
Author Organization [facility] Practices Address [address] [place] [address] Care Team Providers Care Dev Manager Name Role Phone Joel Laquita EUBANKS Primary Care Provider [phone] Reason for Visit * Reason Comments Urinary tract infection Encounter Details Date Type Department Care Team (Late st Contact Info) Description 05/08/2025 9:30 AM PDT On-Demand Video Visit [facility] [address] [place] [id number] Roxana Marques MD [address] [place] [id number] Dysuria (Primary Dx) Social History Tobacco Use Types [...] place to sleep or slept in a chcf (including now)? No 04/13/2024 Housing Stability Vital Sign Answer Rojelio e Recorded Unable to Pay for Housing in the Last Year Not o n file 03/11/2025 Number of Times Moved in the Last Year Not on fi le 03/11/2025 At any time in the past 12 m onths, were you homeless or living in a chcf (including now)? No 03/11/2025 Core Social Determinants of Health Screening Questions Answer Date Recorded Within the past 12 months, y ou worried that your food would run out before you got the money to buy more. Never true 03/11/2025 Food Insecurity Food Insecurity Present 03/11/20 25 At any time in the past 12 m onths, were you homeless or living in a chcf (including now)? No 03/11/2025 How hard is [...] as of this encounter Progress Notes * Roxana Marques MD - 05/08/2025 9:58 AM PDT Assessment & Plan - VIDEO VISIT 1. Dysuria - lower urinary symptoms starting yesterday similar to past UTIs, no s/s of pyelo at this time. - discussed options, patient will go to the lab now to submit urine sample for culture then start empiric Macrobid - continue oral hydration and azo PRN -seek in-person evaluation if new/worsening symptoms like flank pain or fever Subjective - VIDEO VISIT Patient presents with: Urinary tract infection 1. Dysuria - x 1 day Patient reports waking yesterday with pelvic cramps and dysuria along with somewhat malodorous urine. Symptoms continue today but no fever/chills, nausea/vomiting, hematuria, or flank pain. She recalls having had 2 UTIs in the past, the last was approximately 1 year ago. She has been staying hydrated and taking azo PRN. Objective - VIDEO VISIT Physical assessment is limited due to video visit and instructions are given by provider to be performed by patient. There were no vitals taken for this visit. Physical Exam: General Appearance: Alert, cooperative, no [...] location which is confirmed to be in [place]. Prior to discussing medical issues, the patient provided informed verbal consent to perform this consultation using Telehealth tools, and all questions about the Telehealth interaction were answered. Patient confirms they are located in a safe location and within the state of [place]: Yes Patient states location at time of video visit is: [address] [place] [address] Patient confirmed date of and the phone number where they can be reached in case video visit is disconnected. [phone] Total minutes spent: 20 minutes in total in chart review in advance of the appointment (symptoms reported, previous consultations and evaluations, labs, imaging), documentation after appointment, andface to face time in counseling, evaluation and management related to this telehealth visit on the day of service. documented in this encounter Nursing Notes * Anabel Schwartz MA - 05/08/2025 9:50 AM PDT On-Demand Video Visit Care Team Rooming Note: Chief Complaint: Patient presents with: Urinary tract infection Home Vitals: respiratory rate: 20 Pulse:70 Oxygen:98 Verify Allergies: Allergies Allergen Reactions Penicillins Rash, Unspecified and Rash, urticarial Verify Tobacco Use: Tobacco Use: Low Risk (04/26/2025) Patient History Smoking Tobacco Use: Never Smokeless Tobacco Use: Never Passive Exposure: Not on file Verify LMP: No LMP recorded. Verified current meds? Yes Verified reconciliation as needed (meds/allergies/immunizations)? Yes Verified preferred pharmacy? Yes Photos needed/uploaded? No On-Demand Video Visit Consent: The patient (Arsen Carreon) has given verbal or written consent for delivery of health care, via telehealth through an On-Demand Video Visit appointment. Patient was using real-time Telehealth tools between my location and the patient's location which is confirmed to be in [place]. Prior to discussing medical issues, the patient provided informed verbal consent to perform this consultation using Telehealth tools, and all questions about the Telehealth interaction were answered. Patient gave authorization for ambient listening technology? YES, gave verbal authorization to use ambient listening technology and third libertarian audio recording to assist with this clinical encounter. Patient confirms they are located in a safe location and within the state of [place]: Yes Patient states location at time of video visit is (if outside home residence, indicate current location):at Home Address on File - [address] [facility] [address] documented in this encounter Plan of Treatment Not on file documented as of this encounter Results * (ABNORMAL) CULTURE, URINE (05/08/2025 11:10 AM PDT) Special Requests None 05/08/2025 10:58 AM PDT [facility] [phone] MICRO SETUP TIME 05/09/2025 12:43 AM 05/08/2025 10:58 AM PDT [facility] [phone] CULTURE 50,000 to 100,000 cfu/mL Escherichia coli(A) 05/10/2025 3:45 PM PDT [facility] [phone] Urine clean catch URINARY TRACT FLUIDS AND SPACES, CS / Unknown 05/08/2025 11:10 AM PDT 05/08/2025 11:37 AM PDT Narrative Organism Antibiotic Method Susceptibility Escherichia coli Ampicillin MICROBIOLOGY KATI >=32: Resistant Escherichia coli Cefepime MICROBIOLOGY KATI <=0.12: Sensitive Escherichia coli Cefoxitin MICROBIOLOGY KATI <=4: Sensitive Escherichia coli Ceftriaxone MICROBIOLOGY KATI <=0.25: Sensitive Comment: Ceftriaxone resistance may be used as a surrogate indicator of ESBL production. Escherichia coli Ciprofloxacin MICROBIOLOGY KATI 1: Resistant Escherichia coli Gentamicin MICROBIOLOGY KATI >=16: Resistant Escherichia coli Meropenem MICROBIOLOGY KATI <=0.25: Sensitive Escherichia coli Levofloxacin MICROBIOLOGY KATI 1: Intermediate Escherichia coli Nitrofurantoin MICROBIOLOGY KATI <=16: Sensitive Escherichia coli Piperacillin/Tazobactam MICROBIOLOGY KATI <=4: Sensitive Escherichia coli Trimethoprim/Sulfa MICROBIOLOGY KATI >=320: Resistant Escherichia coli Cefazolin (urine) MICROBIOLOGY KATI 8: Sensitive Comment: When treating uncomplicated UTI's due to E. coli, K. pneumoniae and P. mirabilis, cefazolin can be used to predict results for the following oral agents: cephalexin (Keflex), cefaclor (Ceclor), cefpodoxime (Vantin), cefprozil (Cefzil), cefuroxime (Ceftin), cefdinir (Omnicef), and loracarbef. Isolates showing resistance (I or R) to cefazolin but susceptible (S) to ceftriaxone may have variable susceptibility to cefpodoxime, cefdinir, and cefuroxime. Escherichia coli Ampicillin/Sulbactam MICROBIOLOGY KATI 16: Intermediate Roxana Marques MD LAB MICROBIOLOGY Final Result [facility] [address] [place], [place] [id number] [facility] [phone] [address] [place] [address] [facility] [phone] [address] [place] [address] documented in this encounter Visit Diagnoses Diagnosis Dysuria- Primary documented in this encounter Care Teams Dev Manager Relationship Specialty Start Date End Date Laquita Maldonado DO [address] [place] [phone] PCP - General Family Medicine 01/17/24 documented as of this encounter
--- OUTSIDE RECORDS SUMMARY | 2025-05-08 13:00 | XMS_ITS | Encounter Summary ---
Author Organization [facility] Practices Address [address] [place] [address] Care Team Providers Care Level Vial Marker Name Role Phone Joel Laquita EUBANKS Primary Care Provider [phone] Encounter Details Date Type Department Care Team (Late st Contact Info) Description 05/08/2025 11:00 AM PDT Ancillary Visit [facility] Medicine [facility] [address] [place] [address] Dysuria Social History Tobacco Use Types Packs/Day Years [...] place to sleep or slept in a correction (including now)? No 04/13/2024 Housing Stability Vital Sign Answer Rojelio e Recorded Unable to Pay for Housing in the Last Year Not o n file 03/11/2025 Number of Times Moved in the Last Year Not on fi le 03/11/2025 At any time in the past 12 m onths, were you homeless or living in a correction (including now)? No 03/11/2025 Core Social Determinants of Health Screening Questions Answer Date Recorded Within the past 12 months, y ou worried that your food would run out before you got the money to buy more. Never true 03/11/2025 Food Insecurity Food Insecurity Present 03/11/20 25 At any time in the past 12 m [facility], were you homeless or living in a correction (including now)? No 03/11/2025 How hard is [...] Procedure Name Priority Date/Time Associated Diagnosis Comments MI URINE CULTURE/COLONY COUNT Routine 05/08/2025 11:10 AM PDT Dysuria documented in this encounter Results * (ABNORMAL) CULTURE, URINE (05/08/2025 11:10 AM PDT) Special Requests None 05/08/2025 10:58 AM PDT [facility] [phone] MICRO SETUP TIME 05/09/2025 12:43 AM 05/08/2025 10:58 AM PDT [facility] [phone] CULTURE 50,000 to 100,000 cfu/mL Escherichia coli(A) 05/10/2025 3:45 PM PDT [facility] [phone] Urine clean catch URINARY TRACT FLUIDS AND [...] Roxana Marques MD LAB MICROBIOLOGY Final Result [facility] [address] [place], [place] [id number] [facility] [phone] [address] [place] [address] [facility] [phone] [address] [place] [address] documented in this encounter Visit Diagnoses Diagnosis Dysuria documented in this encounter Care Teams Level Vial Marker Relationship Specialty Start Date End Date Laquita Maldonado DO [address] [place] [phone] PCP - General Family Medicine 01/17/24 documented as of this encounter
[2025-05-22] VITALS (11 sets, daily range): BP systolic 82–133; BP diastolic 39–75; PULSE 67–116; RESP 16–24; TEMP 36.6–38; O2SAT 97–100; BMI 22.8; BMI 23.3
--- OUTSIDE RECORDS SUMMARY | 2025-05-22 08:43 | XMS_ITS | Encounter Summary ---
Author Organization [facility] Address [address] [place] [address] Care Team Providers Care Stay Cutter Name Role Phone Sandra Cedillo DO Primary Care Provider Sandra Cedillo DO Unavailable [phone] Encounter Details Date Type Department Care Team (Latest Contact Info) Description 05/15/2020 Orders Only [facility] DE[facility] Provider, MD [facility] Social History Tobacco Use Types Packs/Day Years Used Date Smoking Tobacco: Never Smokeless Tobacco: Never Alcohol Use Standard Drinks/Week Comments Not Asked 0 (1 standard drink = 0.6 oz pur e alcohol) Comments Unknown Sex and Gender Information Value Date Recorded Sex Assigned at Not on file Legal Sex Female 5:31 PM PDT Gender Identity Not on file Sexual Orientation Not on file documented as of this encounter Plan of Treatment Not on file documented as of this encounter Procedures Procedure Name Priority Date/Time Associated Diagnosis Comments [facility] OUTSIDE MRI - SCANNED 05/15/2020 12:00 AM PDT documented in this encounter Results * [facility] OUTSIDE MRI - SCANNED (05/15/2020 12:00 AM PDT) Anatomical Region Laterality Modality Other 05/15/[address] ORDERABLES Final Result documented in this encounter Visit Diagnoses Not on filedocumented in this encounter Additional Health Concerns Infection Onset Date Last Indicated Resolved Time PUI1 COVID-19 (2018-nCoV) 01/05/2022 01/05/2022 5:14 PM PDT COVID-19 (2019-nCoV) 01/05/2022 01/05/202201/25/ 022 10:52 PM PDT documented as of this encounter Care Teams Stay Cutter Relationship Specialty Start Date End Date Sandra Cedillo DO [address] [place] [address] PCP - General 06/08/09 Sandra Cedillo DO [address] [place] [address] PCP - Pediatrics 06/01/09 documented as of this encounter
--- OUTSIDE RECORDS SUMMARY | 2025-05-22 08:43 | XMS_ITS | Encounter Summary ---
Author Organization [facility] and [facility] Address [address] [place] [address] Care Team Providers Care Director Transportation Name Role Phone Sandra Cedillo DO Primary Care Provider [phone] Sandra Cedillo DO Unavailable [phone] Reason for Visit * Reason Comments Medication Refill Encounter Details Date Type Department Care Team ([facility] st Contact Info) Description 04/28/2024 Refill Pediatrics [address], [address] [place] [address] [phone] Sandra Cedillo DO [address] [place] [address] [id number] Social History Tobacco Use Types Packs/Day Years Used Date Smoking Tobacco: Never Passive Smoke Exposure: Never Smokeless Tobacco: Never Alcohol Use Standard [...] documented as of this encounter Visit Diagnoses Not on filedocumented in this encounter Additional Health Concerns Assessment Noted Time PHQ-9 Depression Total Score: 2 09/16/20 2:14 PM PST PHQ-2 Depression Total Score: 0 09/16/20 2:14 PM PST documented as of this encounter Care Teams Director Transportation Relationship Specialty Start Date End Date Sandra Cedillo DO [address] [place] [address] [phone] PCP - General 06/08/09 Sandra Cedillo DO [address] [place] [address] [phone] PCP - Pediatrics 06/01/09 documented as of this encounter
--- OUTSIDE RECORDS SUMMARY | 2025-05-22 08:43 | XMS_ITS | Clinical Summary ---
Author Organization [facility] and [facility] Address [address] [place] [address] Care Team Providers Care Associate Dean Of Women Name Role Phone Nguyen, Sandraeliseo Ramirez DO Primary Care Provider [phone] [place]Sandra forde Unavailable [phone] Source Comments This information has been disclosed to you from records protected by Federalconfidentiality rules (42 CFR Part 2). The Federal rules prohibit you frommaking any further disclosure of this informationunless further disclosure isexpressly permitted by the written consent of the person to whom it pertains oras otherwise permitted by 42 CFR Part 2. The information released containselements of the medical record deemed pertinent for the care of the patient.[facility] Allergies Active Allergy Reactions Criticality Noted Date Comments Penicillins Rash,Hives/urticaria Medium 08/17/2009 Per mom on 08/16/09 Medications cefadroxil (DURICEF) 500 mg capsule 11/09/2020 Active escitalopram oxalate (Lexapro) 5 mg TABS take 1 Tablet (5 mg total) by mouth every day 30 Tablet 01/13/2021 Active cetirizine HCl (ZYRTEC PO) take by mouth Acti ve norgestimate-et hinyl estradioL (Tri-Sprintec (28)) 0.18/0.215/0.25 mg-35 mcg TABS 05/01/2022 Acti ve cefdinir (OMNICEF) 300 mg capsule take 2 Capsules (600 mg total) by mouth daily 12/15/2022 Active predniSONE (Deltasone) 10 mg tablet 60mg PO QAM x2d then 50mg PO QAM x2d then 40mg PO QAM x2d then 30mg PO QAM x2d then 20mg PO QAM x2d then 10mg PO QAM x2d then stop 03/06/2023 Active meloxicam (Mobic) 15 mg tablet take 1 Tablet (15 mg total) by mouth daily as needed 09/10/2023 Active escitalopram oxalate 5 mg tablet take 1 Tablet (5 mg total) by mouth 08/13/2023 Active norethindrn a-e estradiol-iron (Loestrin Fe 10/19 (28-Day)) 1-20 mg-mcg TABS take 1 Tablet by mouth every day 28 Tablet 6 09/16/2023 Active escitalopram oxalate 10 mg tablet TAKE 1/2 TO 1 TABLET BY MOUTH DAILY DIRECTED 90 Tablet 02/13/2024 Active Active Problems Problem Noted Date Diagnosed Date 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 Concussion with loss of consciousness 09/01/2021 Depressed mood 02/10/2021 Recurrent sinus infections 06/08/2019 Immunizations Immunization Administration Dates Next Due DTaP 01/26/2009, 5,08/07/2004,05/01,03/02/2004 Flu Vaccine 6-35 months old 08/07/2004 Flu vaccine (IIV3), preservative-free 10/27/2012 ,08/01/2009 Flu vaccine (IIV4), preservative-free 08/28/2022 HPV, 9-valent (Gardasil 9) 03/02/2019,03/03/2018 Hep A, pediatric/adolescent 01/29/2007, 6 Hep B, pediatric/adolescent 2003 Hib,unspecified formulation 05/01/2004 Hib-Hep B (Comvax) 12/27/2004,03/02/2004 MMR 01/16/2008,03/06/2005 Meningococcal B, OMV (Bexsero) 05/02/2022,2021 Meningococcal MenACWY-D (Menactra) 05/03/2020, PPD 02/28/2009 Pfizer (PRE FALL 2022) monov alent COVID-19 vaccine (PURPLE CAP) 09/27/2021,02/03/2021,01/10/2021 Pneumococcal conjugate (PCV7 ) (Prevnar 7) 12/27/2004,06/28/2004,05/01/2004,03/02 Polio, inactivated (IPV) (Ipol) 01/27/20 09,06/28/2004,05/01/2004,03/02 Tdap (> 7 yrs) 01/24/2015 Varicella (Varivax) 01/16/2008,03/06/2005 Social History Tobacco Use Types Packs/Day Years Used Date Smoking Tobacco: Never Passive Smoke Exposure: Never Smokeless Tobacco: Never Tobacco Cessation:Counseling Given: Not Answered Alcohol Use Standard Drinks/Week Comments Not Asked 0 (1 standard drink = 0.6 oz pur e alcohol) Comments Unknown Sex and Gender Information Value Date Recorded Sex Assigned at Not on file Legal Sex Female 5:31 PM PDT Gender Identity Not on file Sexual Orientation Not on file Last Filed Vital Signs Vital Sign Reading Time Taken Comments Blood Pressure 108/70 09/16/2023 2:06 PM PST Pulse 67 09/16/2023 2:06 PM PST Temperature 36.7 C (98 F) 05/13/2023 9:36 AM PDT Respiratory Rate 20 06/10/2015 2:37 PM PDT Oxygen Saturation 99% 08/28/2022 9:3 3 AM PST Inhaled Oxygen Concentration - - Weight 63.3 kg (139 lb 9.6 oz) 05/09/2023 2:04 PM PDT patient did not want weight to be mentioned Height 167 cm (5' 5.75) 09/16/2023 2:0 6 PM PST Body Mass Index 22.03 04/17/2023 2:49 PM PDT Plan of Treatment Health Maintenance Due Date Last Done Comments HEPATITIS C SCREENING 2003 Hepatitis B Screening Discussion 2003 CHLAMYDIAL INFECTION SCREENING 2015 COVID-19 Vaccine ( season) 2024 09/27/2021, 02/03/2021, 01/10/2021 PAP SMEAR 12/27/2024 DTaP/Tdap/Td Immunizations (7 - Td or Tdap) 01/24/2025 01/24/2015, 01/26/2009, 06/27/2005, Additional history exists INFLUENZA VACCINE (#1) 2025 2, 10/27/2012, 08/01/2009 Pneumococcal Vaccine Aged Out 12/27/2004, 06/28/2004, 05/01/2004, Additional history exists No longer eligible based on patient's age to complete this topic HPV IMMUNIZATIONS Completed 03/02/2019, 03/03/2018 MCV4 IMMUNIZATIONS Completed 05/03/2020, 0 05/03/2020, 01/24/2015 Insurance R Care Teams Associate Dean Of Women Relationship Specialty Start Date End Date Sandra Cedillo DO [address] [place] [id number] PCP - General 06/08/09 Sandra Cedillo DO [address] [place] [id number] PCP - Pediatrics 06/01/09
--- OUTSIDE RECORDS SUMMARY | 2025-05-22 08:43 | XMS_ITS | Clinical Summary ---
Author Organization [facility] Address [address] [facility], [place] [address] [place] [address] Care Team Providers Care Healthcare Consulting Manager Name Role Phone Sandra Cedillo DO Primary Care Provider [phone] Source Comments These records are disclosed for treatment purposes as permitted by state and federal privacy law. Any further disclosure may only be done as permitted by law or with the patient's written authorization.[facility] Allergies Active Allergy Reactions Criticality Noted Date Comments Penicillins Hives Medium 06/19/2017 Medications cetirizine 10 mg Capsule Take by mouth. Active fluticasone (FLONASE) 50 mcg/spray nasal spray by nostrils (both) route daily. 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 Immunizations Immunization Administration Dates Next Due Pfizer COVID-19 Vaccine (Purple cap)-discontinue d 02/03/2021,01/10/2021 Social History Tobacco Use Types Packs/Day Years Used Date Smoking Tobacco: Never Assessed Comments Unknown Sex and Gender Information Value Date Recorded Sex Assigned at Not on file Legal Sex Female 7:12 AM PDT Gender Identity Not on file Sexual Orientation Not on file Last Filed Vital Signs Vital Sign Reading Time Taken Comments Blood Pressure - - Pulse - - Temperature - - Respiratory Rate - - Oxygen Saturation - - Inhaled Oxygen Concentration - - Weight 18.8 kg (41 lb 7.1 oz) 12/16/2009 3:14 PM PDT Height 110.5 cm (3' 7.5) 12/16/2009 3:14 PM PDT Body Mass Index 15.4 12/16/2009 3:14 PM PDT Plan of Treatment Health Maintenance Due Date Last Done Comments MMR vaccines (1 of 1 - Standard series) 12/27/2004 Well Visit 12/27/2006 DTaP / Tdap / Td vaccines (1 - Tdap) 12/27/2010 Varicella vaccines (1 of 2 - 13+ 2-dose series) 12/27/2016 HPV vaccines (1 - 3-dose series) 12/27/2018 Meningococcal B vaccine (1 o f 2 - Standard) 2019 Hepatitis B vaccines (1 of 3 - 19+ 3-dose series) 12/27/2022 COVID-19 Vaccine (4 - 2023-2 5 season) 2024 09/27/2021, 02/03/2021, 01/10/2021 PCHA Pap Smear 12/27/2024 Influenza Vaccine (#1) 2025 Hepatitis A vaccines Aged Out No long er eligible based on patient's age to complete this topic Hib vaccines Aged Out No longer eligi ble based on patient's age to complete this topic Meningococcal (ACYW) vaccine Aged Out No longer eligible based on patient's age to complete this topic Pneumococcal (PCV) vaccines Aged Out No longer eligible based on patient's age to complete this topic Polio (IPV/OPV) vaccines Aged Out No longer eligible based on patient's age to complete this topic RSV <20 Months Aged Out No longer betzy gible based on patient's age to complete this topic Rotavirus vaccines Aged Out No longer eligible based on patient's age to complete this topic Care Teams Healthcare Consulting Manager Relationship Specialty Start Date End Date Sandra Cedillo DO [address] [place] [address] PCP - General Pediatrics 12/06/16
--- OUTSIDE RECORDS SUMMARY | 2025-05-22 08:43 | XMS_ITS | Encounter Summary ---
Author Organization [facility] and [facility] Address [address] [place] [address] Care Team Providers Care Braille Typist Name Role Phone Sandra Cedillo DO Primary Care Provider [phone] Sandra Cedillo DO Unavailable Reason for Visit * Reason Onset Date Comments Appointment/scheduling 04/17/2023 Encounter Details Date Type Department Care Team (Late st Contact Info) Description 04/17/2023 Telephone ObGyn [facility] [address] [facility], [facility] [address] [place] [address] Pcp, No Appointment/scheduling Social History Tobacco Use Types Packs/Day Years [...] on file documented as of this encounter Miscellaneous Notes * Telephone Encounter - Stephania Handy - 04/17/2023 2:31 PM PDT Bella mom called to say Arsen will be about 4 minutes late. documented in this encounter Plan of Treatment Not on file documented as of this encounter Visit Diagnoses Not on filedocumented in this encounter Additional Health Concerns Assessment Noted Time PHQ-9 Depression Total Score: 2 01/24/20 22 3:39 PM PDT PHQ-2 Depression Total Score: 0 01/24/20 22 3:39 PM PDT documented as of this encounter Care Teams Braille Typist Relationship Specialty Start Date End Date Sandra Cedillo DO [address] [place] [address] PCP - General 06/08/09 Sandra Cedillo DO [address] [place] [address] PCP - Pediatrics 06/01/09 documented as of this encounter
--- OUTSIDE RECORDS SUMMARY | 2025-05-22 08:43 | XMS_ITS | Encounter Summary ---
Author Organization [facility] and [facility] Address [address] [facility] [place] [address] Care Team Providers Care Account Receivable Associate Name Role Phone Joel Laquita EUBANKS Primary Care Provider [phone] Encounter Details Date Type Department Care Team (Late st Contact Info) Description 03/17/2025 Results Follow-Up [facility] [address] [place], [place] [id number] Anastasia Flower PA-C [address] [place] [phone] ARCHITECTURAL WOOD MODEL MAKER CYTOLOGY, HEPATITIS C ANTIBODY RFLX HCV RNA PCR, LIPID PROFILE, Additional followed-up results: 9 Social History Tobacco Use Types Packs/Day Years [...] place to sleep or slept in a snf (including now)? No 04/13/2024 Housing Stability Vital Sign Answer Rojelio e Recorded Unable to Pay for Housing in the Last Year Not o n file 03/11/2025 Number of Times Moved in the Last Year Not on fi le 03/11/2025 At any time in the past 12 m onths, were you homeless or living in a snf (including now)? No 03/11/2025 Core Social Determinants of Health Screening Questions Answer Date Recorded Within the past 12 months, y ou worried that your food would run out before you got the money to buy more. Never true 03/11/2025 Food Insecurity Food Insecurity Present 03/11/20 25 At any time in the past 12 m onths, were you homeless or living in a snf (including now)? No 03/11/2025 How hard is [...] Diagnoses Not on filedocumented in this encounter Care Teams Account Receivable Associate Relationship Specialty Start Date End Date Laquita Maldonado DO [address] [place] [phone] PCP - General Family Medicine 01/17/24 documented as of this encounter
--- OUTSIDE RECORDS SUMMARY | 2025-05-22 08:43 | XMS_ITS | Patient Health Record ---
Author Organization [facility] Address [address] [place] [phone] Care Team Providers Care Field Marketing Representative Name Role Phone Unknown, Unknown Primary Care Provider Unavailab Pj Foss Unavailable Allergies Allergen (clinical drug ingredient) Drug/Non Drug Allergy documented on EMR Reaction Allergy Type Onset Date Status Penicillin (uncoded) Fever, Hives Allergy Active Reason For Referral No Information Medications Medication SIG (Take, Route, Frequency, Duration) Notes Start Date End Date Status Escitalopram Oxalate 5 MG TAKE 1 TABLET BY MOUTH EVERY DAY FOR GENERALIZED ANXIETY DISORDER Oral; Duration: 90 Days Active Pam 1.5/30 1.5-30 MG-MCG TAKE 1 TABLE T BY MOUTH DAILY Oral; Duration: 84 Days Active Meloxicam 15 MG TAKE 1 TABLET BY CORIN TH DAILY NEEDED Oral; Duration: 20 Days Active Vital Signs Temperature 98.1 degrees Fahrenheit 12/22/2024 Blood pressure diastolic 64 mm Hg 12/22/2024 Blood pressure systolic 108 mm Hg 12/22/2024 Encounters Encounter Location Date Provider Diagnosis [facility] [address] [id number] 12/22/2024 Rlsouk Salazarmmajovany Chronic pansinusitis 473.8 ; Non-recurrent acute serous otitis media of right ear H65.01 and Dysfunction of right eustachian tube H69.91 [facility] [address] [phone] 12/22/2024 Pj Salazarmmajovany Assessments Encounter Date Diagnosis (ICD Code) Assessment Notes Treatment Notes Treatment Clinical Notes Section Notes 12/22/2024 Non-recurrent acute serous otitis media of right ear (ICD-10 - H65.01) 12/22/2024 Chronic pansinusitis (ICD9-CM - 473.8) 12/22/2024 Dysfunction of right eustachian tube (ICD-10 - H69.91) 12/22/2024 Other Cefdinir 300mg bid x 10 days Prednisone taper Plan Of Treatment No Information Insurance Providers Payer Name Payer Address Payer Phone Subscriber Number Group Number Insured Name Patient Relationship to Insured Coverage Start Date Coverage End Date [facility] [address] [place], [place] [id number] Arsen Carreon Self - patient is the insured Medical (General) History Medical History History ICD Code asthma: No Bleeding Disorder: No Cancer (type of cancer): No Chemotherapy: No congestive heart failure: No Diabetes: No emphysema: No Hearing Aids Worn: No Heart Attack: No heart valve: No Hepatitis: No HIV: No Hypertension: No Kidney disease: No noise exposure: No pneumonia: No Radiation: No tuberculosis: No Tumors: No Ulcers: No Surgical History Surgery Date(Month/Year) Septoplasty, turbinate resection, antral windows 08/24/2023
--- OUTSIDE RECORDS SUMMARY | 2025-05-22 08:44 | XMS_ITS | Clinical Summary ---
Author Organization [facility] Address [address] [place] [address] Care Team Providers Care Corrections Caseworker Name Role Phone No Ref-Primary, Physician Primary Care Provider Denzel Morgan MD Unavailable [phone] Rachel Talbert Unavailable Ely Griffith MD Unavailable Allergies Active Allergy Reactions Criticality Noted Date Comments Penicillins 10/04/2023 Medications levocetirizine (XYZAL) 5 MG tablet Take 5 mg by mouth every evening Active escitalopram (LEXAPRO) 5 MG tablet Take 5 mg by mouth daily Active norethindrone-e thinyl estradiol (MICROGESTIN 1.530) 1.5-30 MG-MCG tabletIndicatio ns:PCOS (polycystic ovarian syndrome) Take 1 tablet by mouth daily. 84 tablet 3 08/22/2024 Active Social History Tobacco Use Types Packs/Day Years Used Date Smoking Tobacco: Never Smokeless Tobacco: Never Tobacco Cessation:Counseling Given: Not Answered PHQ-2 Answer Date Recorded PHQ-2 Score 0 10/04/2023 Adolescent Education Answer Date Record ed Getting School Help Needed Not on file 07/03 Comments Unknown Sex and Gender Information Value Date Recorded Sex Assigned at Not on file Legal Sex Female 12:00 PM CDT Gender Identity Not on file Sexual Orientation Not on file Last Filed Vital Signs Vital Sign Reading Time Taken Comments Blood Pressure - - Pulse - - Temperature - - Respiratory Rate - - Oxygen Saturation - - Inhaled Oxygen Concentration - - Weight 64 kg (141 lb) 10/04/2023 10:06 AM RECEIVING TANK OPERATOR Height 167.6 cm (5' 6) 10/04/2023 10:06 AM RECEIVING TANK OPERATOR Body Mass Index 22.76 10/04/2023 10:06 AM RECEIVING TANK OPERATOR Plan of Treatment Health Maintenance Due Date Last Done Comments ADVANCE CARE PLANNING 2003 ANNUAL REVIEW OF HM ORDERS 2003 CHLAMYDIA SCREENING 2003 HIV SCREENING 12/27/2018 HEPATITIS C SCREENING 12/27/2021 COVID-19 VACCINE ( season) 2024 09/27/2021, 02/03/2021, 01/10/2021 PHQ-2 (once per calendar year) 2024 10/04/2023 PAP 12/27/2024 DTAP/TDAP/TD VACCINE (7 - Td or Tdap) 01/24/2025 01/24/2015, 01/26/2009, 06/27/2005, Additional history exists YEARLY PREVENTIVE VISIT 04/14/2025 04/14/20 24, 09/16/2023, 04/17/2023, Additional history exists INFLUENZA VACCINE (#1) 2025 2, 10/27/2012, 08/01/2009, Additional history exists ZOSTER VACCINE (1 of 2) 12/27/2053 HEPATITIS B VACCINE Completed 12/27/2004, 03/02/2004, 2003 PNEUMOCOCCAL VACCINE: PEDIATRICS (0 to 5 YEARS) AND AT-RISK PATIENTS (6 to 49 YEARS) Aged Out 12/27/2004, 06/28/2004, 05/01/2004, Additional history exists No longer eligible based on patient's age to complete this topic HPV VACCINE Completed 03/02/2019, 03/03/2018 MENINGITIS VACCINE Completed 05/03/2020, 01/24/2015 MENINGITIS B VACCINE Completed 05/02/2022, 04/04/20 22 Insurance [facility] [place] [place] [address] CHOICE Care Teams Corrections Caseworker Relationship Specialty Start Date End Date No Ref-Primary, Physician PCP - General 01/11/23 Denzel Morgan MD [address] [address] [place] [phone] Otolaryngology 01/11/23 Rachel Talbert AuD [address] [facility] [place] [phone] Aquatic Instructor Audiology 01/11/23 Ely Griffith MD [address] [place] [address] Assigned Musculoskeletal Provider 10/24/23
--- OUTSIDE RECORDS SUMMARY | 2025-05-22 08:44 | XMS_ITS | Encounter Summary ---
Author Organization [facility] Practices Address [address] [facility] [place] [address] Care Team Providers Care Oyster Sorter Name Role Phone Joel Laquita EUBANKS Primary Care Provider [phone] Encounter Details Date Type Department Care Team (Late st Contact Info) Description 05/09/2025 Results Follow-Up [facility] [address] [place] [address] Roxana Marques MD [address] [place] [phone] CULTURE, URINE Social History Tobacco Use Types Packs/Day Years [...] place to sleep or slept in a long-term (including now)? No 04/13/2024 Housing Stability Vital Sign Answer Rojelio e Recorded Unable to Pay for Housing in the Last Year Not o n file 03/11/2025 Number of Times Moved in the Last Year Not on fi le 03/11/2025 At any time in the past 12 m onths, were you homeless or living in a long-term (including now)? No 03/11/2025 Core Social Determinants of Health Screening Questions Answer Date Recorded Within the past 12 months, y ou worried that your food would run out before you got the money to buy more. Never true 03/11/2025 Food Insecurity Food Insecurity Present 03/11/20 25 At any time in the past 12 m onths, were you homeless or living in a long-term (including now)? No 03/11/2025 How hard is [...] on filedocumented in this encounter Care Teams Oyster Sorter Relationship Specialty Start Date End Date Laquita Maldonado DO [address] [place] [phone] PCP - General Family Medicine 01/17/24 documented as of this encounter
--- OUTSIDE RECORDS SUMMARY | 2025-05-22 08:44 | XMS_ITS | Encounter Summary ---
Author Organization [facility] Practices Address [address] [facility] [place] [address] Care Team Providers Care Rn Corrections Name Role Phone Laquita Maldonado DO Primary Care Provider [phone] Encounter Details Date Type Department Care Team (Late st Contact Info) Description 05/21/[address] [address] [employer], [facility] [address] [place] [address] Social History Tobacco Use Types Packs/Day Years [...] place to sleep or slept in a [place] (including now)? No 04/13/2024 Housing Stability Vital Sign Answer Rojelio e Recorded Unable to Pay for Housing in the Last Year Not o n file 03/11/2025 Number of Times Moved in the Last Year Not on fi le 03/11/2025 At any time in the past 12 m [facility], were you homeless or living in a [place] (including now)? No 03/11/2025 Core Social Determinants of Health Screening Questions Answer Date Recorded Within the past 12 months, y ou worried that your food would run out before you got the money to buy more. Never true 03/11/2025 Food Insecurity Food Insecurity Present 03/11/20 25 At any time in the past 12 m [facility], were you homeless or living in a [place] (including now)? No 03/11/2025 How hard is [...] encounter Miscellaneous Notes * Telephone Encounter - Chad Cazares - 05/21/2025 1:05 PM PDT Hi Ms. Carreon, Your video visit has been scheduled for May 27 at 3:[address] Maldonado. If for any reason this date and time does not work, please let us know. Video visits work best on your tablet (e.g. iPad) or smartphone. WHAT TO DO NOW: Log into [employer] and test your hardware. If you don't have it, you can download it for free from the [employer] Store or [employer]. [employer] Store: [employer] Boom [employer] Store: [employer] Go to the Appointment section, select the scheduled video visit and click the link to test your hardware. If there any issues you will be able to fix them before your visit. Up to 7 days ahead of your appointment, please use e[employer] Arrival to complete information needed for your video visit. Go to the Appointment section, select the scheduled video visit and click the eZ Arrival button to do the following: Provide electronic Consent for Video Visit. Complete the Home Vitals Questionnaire. Pay your co-pay. Update your personal information including Medications and Allergies. Tell your doctor any health issues you're having. ON THE DAY OF APPOINTMENT: You can join the Video Visit either of these two ways: Mobile: Join from your mobile device using the [employer] boom on your smart phone or tablet. Computer: If your computer has a web camera and microphone, go to the Appointments section of [email or web address] and start your video visit. Be sure to complete the EZ Arrival process, including the questionnaires available within [employer]. Reminder: Be sure you have completed the above EZ Arrival process before your video visit begins. You can also access step by step instructions and other helpful resources here: [email or web address] For your video visit, please find a private, well-lit spot. Sign into [employer] 15 minutes before your appointment, and click Begin Visit. Headphones are optional but can useful for audio quality and privacy. Your provider will appear when ready for your visit. If you have issues, please contact our [employer] Service Desk at . We look forward to seeing you soon. Best, Your Care Team documented in this encounter Plan of Treatment Not on file documented as of this encounter Visit Diagnoses Not on filedocumented in this encounter Care Teams Rn Corrections Relationship Specialty Start Date End Date Laquita Maldonado DO [address] [place] [id number] PCP - General Family Medicine 01/17/24 documented as of this encounter
--- OUTSIDE RECORDS SUMMARY | 2025-05-22 08:44 | XMS_ITS | Clinical Summary ---
Author Organization [facility] Address [address] [place] [address] Care Team Providers Care Web Production Designer Name Role Phone Laquita Maldonado DO Primary Care Provider [phone] Source Comments This information has been disclosed to you from records protected by Federal confidentiality rules (42 CFR part 2). The Federal rules prohibit you from making any further disclosure of this information unless further disclosure is expressly permitted by the written consent of the person to whom it pertains or as otherwise permitted by 42 CFR part 2. A general authorization for the release of medical or other information is NOT sufficient for this purpose. The Federal rules restrict any use of the information to criminally investigate or prosecute any alcohol or drug abuse patient.[facility] Allergies Active Allergy Reactions Criticality Noted Date Comments Penicillins Rash, Unspecified,Rash, urticarial High 02/10/2009 Medications levocetirizine (XYZAL) 5 MG Tab Take one Tab by mouth daily 06/06/20 23 Active escitalopram (LEXAPRO) 5mg TabIndications:Ge neralized Anxiety Disorder Take one Tab by mouth daily Indications: Generalized Anxiety Disorder 90 Tab 1 03/26/20 25 Active meloxicam (MOBIC) 15mg TabIndications:Sp rain of medial collateral ligament of right knee, subsequent encounter Take one Tab by mouth daily with food 90 Tab 3 05/14/20 25 Active norethindrone acetate/ethinyl estradiol (JUNEL ) 1.5-30 MG-MCG TabIndications:Se condary oligomenorrhea Take 1 Tab by mouth daily 84 Tab 3 05/14/20 25 Active meloxicam (MOBIC) 15mg Tab Take one Tab by mouth daily with food 09/10/20 23 025 Discontinue d(Reorder - NO pharmacy notice and NO AVS printing) norethindrone acetate/ethinyl estradiol (JUNEL 1.5) 1.5-30 MG-MCG Tab Take 1 Tbs by mouth daily 08/22/20 24 025 Discontinue d(Reorder - NO pharmacy notice and NO AVS printing) meloxicam (MOBIC) 15mg TabIndications:Sp rain of medial collateral ligament of right knee, subsequent encounter Take one Tab by mouth daily with food 30 Tab 1 04/26/20 25 025 Discontinue d(Reorder - NO pharmacy notice and NO AVS printing) nitrofurantoin (MACROBID) 100mg CapIndications:Dy suria Take one Cap by mouth twice daily for 7 days 14 Cap 05/08/20 25 025 Active Problems Problem Noted Date Diagnosed Date Surveillance for control, oral contracepti ves 03/11/2025 Secondary oligomenorrhea 04/14/2024 Overview (04/14/2024): - evaluated @ [facility] Dr. Griffith 03/18/2024: improved menstrual regularities with improved caloric intake. Some concern for PCOS with LH/FSH ratio. Testosterone and DHEA levels were wnl - working with licensed embalmer supervisor to improve proper fueling with soccer practices/game frequencies. - repeat LH, FSH, DHEA, TSH, T4, fT3, total T3 - soccer season start mid-Apr @ [facility] 04/14/2024 Atrophy of quadriceps femoris muscle 04/14/2024 Maltracking of right patella 04/14/2024 MCL sprain of left knee 04/14/2024 Overview (04/26/2025): Takes meloxicam PRN (up to 3d/week) for MCL sprain of b/l knee, but recently rt > lt. Lt knee fine, s/p medial plica removal. 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 Griffith ([facility]) 03/18/2024: improved menstrual regularities with improved [...] - Continue follow-up with Dr. Griffith and community sports coordinator to increase caloric/nutritional intake - Reviewed [place] PCOS diagnosis criteria, which patient denies hyper androgenic features including hirsutism/acne/deepening of voice. will check pelvic ultrasound for polycystic ovaries. Explained that if ovaries are normal, then oligomenorrhea is likely 2/2 functional hypothalamic hypogonadism Strain of left quadriceps 04/28/2019 Nasal vestibulitis 03/10/2019 Chronic sinusitis s/p turbinate resection and se ptoplasty 12/11/2018 Snoring 12/11/2018 Tonsillar hypertrophy 12/11/2018 Acute atopic conjunctivitis 10/11/2010 Allergic rhinitis 11/23/2009 Resolved Problems Problem Noted Date Diagnosed Date Resolved Date Contusion of bone 04/14/2024 04/14/2024 JUANY (obstructive sleep apnea) 03/10/2019 04/14/2024 Nasal congestion 03/10/2019 04/14/2024 Bilateral impacted cerumen 03/10/2019 0 04/14/2024 Adenoid hypertrophy s/p adenoidectomy 03/10/2019 04/14/2024 Nasal turbinate hypertrophy 12/11/2018 04/14/2024 Deviated septum 12/11/2018 04/14/2024 Daytime somnolence 12/11/2018 Braham-Schlatter's disease of both knees 02/09/2016 04/14/2024 ALLERGIC URTICARIA (fresh pe ach, ?other fruits) 10/11/2010 04/14/2024 ANAPHYLAC RISK FRUITS 11/23/20092023 Encounters Date Type Department Care Team Description 05/21/[address] [address] [place], Tweegeehealthmaame huntley MD 05/09/2025 Results Follow-Up [facility] [address] [phone] Roxana Marques MD CULTURE, URINE 05/08/2025 11:00 AM PDT Ancillary Visit [address] [address] Dysuria 05/08/2025 9:30 AM PDT On-Demand Video Visit [facility] [address] [place] [phone] Roxana Marques MD Dysuria (Primary Dx) 04/26/2025 8:40 AM PDT Video Visit [address] [address] Laquita Maldonado DO Sprain of medial collateral ligament of right knee, subsequent encounter (Primary Dx) 04/21/2025 9:30 AM PDT Ancillary Visit [address] [address] Laboratory examination ordered as part of a routine general medical examination; Hypothalamic hypogonadism (CMS/HCC); Routine screening for STI (sexually transmitted infection) 03/17/2025 Results Follow-Up [address] [address] Anastasia Flower PA-C SISAL OPERATOR CYTOLOGY, HEPATITIS C ANTIBODY RFLX HCV RNA PCR, LIPID PROFILE, Additional followed-up results: 9 03/15/2025 8:35 AM PDT Ancillary Visit [address] [address] Cervical cancer screening 03/12/2025 3:00 PM PDT Office Visit [address] [address] Laquita Maldonado DO Encounter for routine adult physical exam with abnormal findings (Primary Dx); Laboratory examination ordered as part of a routine general medical examination; Cervical cancer screening; Routine screening for STI (sexually transmitted infection); Need for vaccination; Anxiety; Hypothalamic hypogonadism (CMS/HCC) from Last 3 Months Immunizations Immunization Administration Dates Next Due Tdap (ADACEL) 7-64 YRS 03/12/2025 Family History Medical History Relation Comments Coronary Artery Disease Maternal Grandfather s/p PCI and BAY Endometriosis Maternal Grandmother s/p BSO, to franck hysterectomy. Diseased 60syo Gallbladder Disease Maternal Grandmother Scleros ing cholangitis Hematologic Malignancy Maternal Grandmother Ulcerative Colitis Maternal Grandmother Relation Status Comments Brother Father Alive Maternal Grandfather Alive Maternal Grandmother Mother Alive Paternal Grandfather Alive Paternal Grandmother Alive Social History Tobacco Use Types Packs/Day Years Used Date Smoking Tobacco: Never Smokeless Tobacco: Never Tobacco Cessation:Counseling Given: Not Answered Alcohol Use Standard Drinks/Week Comments Yes 2 [...] place to sleep or slept in a penitentiary (including now)? No 04/13/2024 Housing Stability Vital Sign Answer Rojelio e Recorded Unable to Pay for Housing in the Last Year Not o n file 03/11/2025 Number of Times Moved in the Last Year Not on fi le 03/11/2025 At any time in the past 12 m [facility], were you homeless or living in a penitentiary (including now)? No 03/11/2025 Core Social Determinants of Health Screening Questions Answer Date Recorded Within the past 12 months, y ou worried that your food would run out before you got the money to buy more. Never true 03/11/2025 Food Insecurity Food Insecurity Present 03/11/20 At any time in the past 12 m [facility], were you homeless or living in a penitentiary (including now)? No 03/11/2025 How hard is [...] Sign Reading Time Taken Comments Blood Pressure 96/56 03/12/2025 2:51 PM PDT Pulse 74 03/12/2025 2:51 PM PDT Temperature 36.7 C (98 F) 12/12/2020 5:48 PM PDT Respiratory Rate 18 11/16/2019 2:30 PM PST Oxygen Saturation 99% 03/12/2025 2:51 PM PDT Inhaled Oxygen Concentration - - Weight 63.6 kg (140 lb 3.2 oz) 03/12/2025 2:51 P M PDT Height 167.3 cm (5' 5.87) 03/12/2025 2:51 PM PD T Body Mass Index 22.72 03/12/2025 2:51 PM PDT Plan of Treatment Health Maintenance Due Date Last Done Comments COVID-19 Vaccine ( season) 2024 09/27/2021, 02/03/2021, 01/10/2021 INFLUENZA VACCINE 06/30/2025 08/28/2022, , 08/01/2009, Additional history exists CHLAMYDIA SCREENING 04/21/2026 04/21/2025 CREATININE 04/21/2026 04/21/2025 GONORRHEA SCREENING 04/21/2026 04/21/2025 HEMOGRAM 04/21/2026 04/21/2025, 10/01, 03/19/2022, Additional history exists PAP SMEAR 03/12/2028 03/12/2025 DTaP,Tdap,or Td Vaccine (8 - Td or Tdap) 03/12/2035 03/12/2025, 01/24/2015, 01/26/2009, Additional history exists HEPATITIS B VACCINE Completed 12/27/2004, 03/02/2004, 2003 PNEUMOCOCCAL VACCINE 0-49 YEARS Aged Out 12/27/2004, 06/28/2004, 05/01/2004, Additional history exists No longer eligible based on patient's age to complete this topic HEPATITIS A VACCINE Completed 01/29/2007, 6 MMR VACCINE ADULT Completed 01/16/2008, 03/06/2005 VARICELLA VACCINE Completed 01/16/2008, 03/06/2005 HPV VACCINE Completed 03/02/2019, 03/03/2018 MENINGOCOCCAL ACWY VACCINE Completed 05/03/2020, UNIVERSAL HIV SCREENING Completed 04/14/2024 HEPATITIS C SCREENING Completed 04/21/2025 Procedures Procedure Name Priority Date/Time Associated Diagnosis Comments KS URINE CULTURE/COLONY COUNT Routine 05/08/2025 11:10 AM PDT Dysuria KS CHYLMD TRACH DNA AMP PROBE Routine 04/21/2025 9:30 AM PDT Routine screening for STI (sexually transmitted infection) KS GENERAL HEALTH PANEL Routine 04/21/2025 9:15 AM PDT Hypothalamic hypogonadism (CMS/HCC) PTH, INTACT & CALCIUM Routine 04/21/2025 9:15 AM PDT Hypothalamic hypogonadism (CMS/HCC) KS ASSAY OF CALCIUM IONIZED Routine 04/21/2025 9:15 AM PDT Hypothalamic hypogonadism (CMS/HCC) KS ASSAY OF FERRITIN Routine 04/21/2025 9:15 AM PDT Hypothalamic hypogonadism (CMS/HCC) KS ASSAY OF VITAMIN D CALCIFEDIOL Routine 04/21/2025 9:15 AM PDT Hypothalamic hypogonadism (CMS/HCC) THYROID SCREEN (TSH) W/ REFLEX FREE T4 Routine 04/21/2025 9:15 AM PDT Hypothalamic hypogonadism (CMS/HCC) COMPREHENSIVE METABOLIC PANEL W GFR Routine 04/21/2025 9:15 AM PDT Laboratory examination ordered as part of a routine general medical examination KS GLYCOSYLATED HEMOGLOBIN TEST Routine 04/21/2025 9:15 AM PDT Laboratory examination ordered as part of a routine general medical examination KS LIPID PANEL Routine 04/21/2025 9:15 AM PDT Laboratory examination ordered as part of a routine general medical examination KS HEPATITIS C AB TEST Routine 04/21/2025 9:15 AM PDT Laboratory examination ordered as part of a routine general medical examination SISAL OPERATOR CYTOLOGY Routine 03/12/2025 Cervical cancer screening from Last 3 Months Results * (ABNORMAL) CULTURE, URINE (05/08/2025 11:10 AM PDT) Special Requests None 05/08/2025 10:[address] [facility] [phone] MICRO SETUP TIME 05/09/2025 12:43 AM 05/08/2025 10:[address] [facility] [phone] CULTURE 50,000 to 100,000 cfu/mL Escherichia coli(A) 05/10/2025 3:45 PM PDT [facility] [phone] Urine clean catch URINARY TRACT FLUIDS AND [...] Roxana Marques MD LAB MICROBIOLOGY Final Result [facility] [address] [place] [address] [facility] [phone] [address] [place] [address] [facility] [phone] [address] [place] [address] * GC & CHLAMYDIA NUCLEIC ACID AMPLIFICATION (04/21/2025 9:30 AM PDT) [facility] CHLAMYDIA AMP RESULT Not Detected Not Detected 04/21/2025 10:40 PM PDT [facility] [phone] GC AMP RESULT Not Detected Not Detected 04/21/2025 10:40 PM PDT [facility] [phone] Comment: Negative results do not exclude the possibility of infection. Interpretation of all results must include clinical evaluation of the patient and other diagnostic procedures. This test was performed by [employer].sh Nucleic Acid Amplification (PCR) methodology. Urine (Urine) 04/21/2025 9:3 0 AM PDT 04/21/2025 9:48 AM PDT Laquita Maldonado DO LAB MICROBIOLOGY Final Result Performing Organization Address [facility] Co de Phone Number [facility] [address] [place], [place] [address] [facility] [phone] [address] [place] [address] * HEPATITIS C ANTIBODY RFLX HCV RNA PCR (04/21/2025 9:15 AM PDT) Pathologist [facility] Hepatitis C Antibody Non Reactive Non Reactive 04/21/2025 3:43 PM PDT [facility] [phone] Comment:Antibodies to HCV no t detected. Does not exclude early acute HCV infection. Serum (Blood) 04/21/2025 9:1 5 AM PDT 04/21/2025 9:47 AM PDT Narrative [facility] - 04/21/2025 3:43 PM PDT Patient fasting Laquita Maldonado DO LAB IMMUNOSEROLOGY Final Result Performing Organization Address [facility]/ZIP Co de Phone Number [facility] [address] [place] [address] [facility] [phone] [address] [place] [address] * CALCIUM, IONIZED (04/21/2025 9:15 AM PDT) Pathologist [facility] Ionized Calcium 1.26 1.11 - 1.30 mmol/L 04/21/2025 2:25 PM PDT [facility] [phone] Comment: This test was developed and its performance characteristics determined by [place], [place]. It has not been cleared or approved by the U.S. Food and Drug Administration, which has determined that such approval is not necessary. Blood (Blood) 04/21/2025 9:1 5 AM PDT 04/21/2025 9:47 AM PDT [facility] - 04/21/2025 2:25 PM PDT Patient fasting Laquita Maldonado DO LAB CHEMISTRY Final Result Performing Organization Address City/[facility]/ZIP Co de Phone Number [facility] [address] [place], [place] [address] [facility] [phone] [address] [place] [address] * VITAMIN D (25 HYDROXY) (04/21/2025 9:15 AM PDT) VitD,25-Hydroxy Tot 68 20 - 80 ng/mL 04/21/2025 3:17 PM PDT [facility] [phone] Comment: This Total 25-OHD assay measures the [...] 5 AM PDT 04/21/2025 9:47 AM PDT [facility] - 04/21/2025 3:17 PM PDT Patient fasting us Laquita Maldonado DO LAB CHEMISTRY Final Result Performing Organization Address City/[facility]/ZIP Co de Phone Number [facility] [address] [place] [address] [facility] [phone] [address] [place] [address] * THYROID SCREEN (TSH) W/ REFLEX FREE T4 (04/21/2025 9:15 AM PDT) TSH 1.56 0.34 - 4.82 uIU/mL 04/21/2025 12:07 PM PDT [facility] [phone] Serum (Blood) 04/21/2025 9:1 5 AM PDT 04/21/2025 9:47 AM PDT Narrative [facility] - 04/21/2025 12:07 PM PDT Patient fasting Laquita Maldonado DO LAB CHEMISTRY Final Result [facility] [address] [place] [address] [facility] [phone] [address] [place] [address] * PTH, INTACT & CALCIUM (04/21/2025 9:15 AM PDT) PTH,Intact 26 14 - 64 pg/mL 04/24/2025 1:52 PM PDT [employer] [facility] [phone] Comment: Note Interpretive Guide Intact PTH Calcium Normal Parathyroid Normal Normal Hypoparathyroidism Low or Low Normal Low Hyperparathyroidism Primary Normal or High High Secondary High Normal or Low Tertiary High High Non-Parathyroid Hypercalcemia Low or Low Normal High For additional information, please refer to [email or web address]/faq/VXR353 (This link is being provided for informational/educational purposes only.) Calcium 9.3 8.6 - 10.2 mg/dL 04/26/2025 11:54 AM PDT [employer] [facility] [phone] Serum (Blood) 04/21/2025 9:1 5 AM PDT 04/21/2025 9:47 AM PDT Narrative [facility] - 04/26/2025 11:54 AM PDT Patient fasting us Laquita Maldonado DO LAB CHEMISTRY Final Result [facility] [address] [place] [address] [facility] [phone] [address] [place] [address] * LIPID PROFILE (04/21/2025 9:15 AM PDT) Total cholesterol 159 <200 mg/dL 025 12:[address] [facility] [phone] Comment: Desirable: <200 mg/dL Borderline: 200 to 239 mg/dL High: >240 mg/dL Triglyceride 47 <150 mg/dL 04/21/2025 12:[address] [facility] [phone] Comment: Normal: <150 mg/dL Borderline High: 150 to 199 mg/dL High: 200 to 499 mg/dL Very High: > or = 500 mg/dL HDL cholesterol 74 >40 mg/dL 12:[address] [facility] [phone] Comment: High: > or = 60 mg/dL Low: <40 mg/dL LDL Calculated 76 <130 mg/dL 04/21/2025 12:[address] [facility] [phone] Comment: Optimal: <100 mg/dL Near Optimal: 100 to 129 mg/dL Borderline High: 130 to 159 mg/dL High: 160 to 189 mg/dL Very High: > or = 190 mg/dL Cholesterol to HDL Ratio 2.1 <5.0 04/21/2025 12:[address] [facility] [phone] VLDL (Calculated) 9 5 - 40 mg/dL 04/21/2025 12:[address] [facility] [phone] Serum (Blood) 04/21/2025 9:1 5 AM PDT 04/21/2025 9:47 AM PDT Narrative [facility] - 04/21/2025 12:07 PM PDT Patient fasting us Laquita Maldonado DO LAB CHEMISTRY Final Result [facility] [address] [facility] [place] [address] [facility] [phone] [address] [place] [address] * HEMOGLOBIN A1C (04/21/2025 9:15 AM PDT) Hemoglobin A1c 5.1 3.5 - 5.6 % 04/21/2025 10:[address] [facility] [phone] Average Glucose 100 mg/dL 10:[address] [facility] [phone] Comment: Hemoglobin A1c 5.7-6.4% Increased Risk of [...] 212 10 240 11 269 Method is [facility] certified References: 1. [place] [employer] Standards of Medical Care in Diabetes. Diabetes Care 2009 33:S11-S61 2. Chriss THOMPSON et al. Translating the A1c assay into estimated average glucose values. Diabetes Care 2007 31:2416-2466 Blood (Blood) 04/21/2025 9:1 5 AM PDT 04/21/2025 9:47 AM PDT Narrative [facility] - 04/21/2025 10:39 AM PDT Patient fasting Laquita Maldonado DO LAB CHEMISTRY Final Result [facility] [address] [place] [address] [facility] [phone] [address] [place] [address] * FERRITIN (04/21/2025 9:15 AM PDT) [facility] Ferritin 19 12 - 252 ng/mL 04/21/2025 12:58 PM PDT [facility] Serum (Blood) 04/21/2025 9:1 5 AM PDT 04/21/2025 9:47 AM PDT Narrative [facility] - 04/21/2025 12:58 PM PDT Patient fasting Laquita Maldonado DO LAB CHEMISTRY Final Result [facility] [address] [place] [address] * COMPREHENSIVE METABOLIC PANEL W GFR (04/21/2025 9:15 AM PDT) Sodium 142 136 - 145 mmol/L 04/21/2025 12:07 PM PDT [facility] [phone] Potassium 4.5 3.5 - 5.1 mmol/L 04/21/2025 12:07 PM PDT [facility] [phone] Chloride 109 98 - 110 mmol/L 04/21/2025 12:07 PM PDT [facility] [phone] CO2 (Bicarbonate) 30 21 - 32 mmol/L 04/21/2025 12:07 PM PDT [facility] [phone] Glucose 87 70 - 99 mg/dL 04/21/2025 12:07 PM PDT [facility] [phone] BUN 19 6 - 25 mg/dL 04/21/2025 12:07 PM PDT [facility] [phone] Creatinine 1.00 0.40 - 1.00 mg/dL 04/21/2025 12:07 PM PDT [facility] [phone] Comment:IDMS-traceable metho d Calcium 9.2 8.2 - 10.2 mg/dL 04/21/2025 12:07 PM PDT [facility] [phone] Total Protein 6.6 6.4 - 8.2 g/dL 04/21/2025 12:07 PM PDT [facility] [phone] Albumin 3.4 3.2 - 4.7 g/dL 04/21/2025 12:07 PM PDT [facility] [phone] Total Bilirubin 0.4 <1.1 mg/dL 12:07 PM PDT [facility] [phone] Alkaline Phosphatase 79 26 - 137 U/L 04/21/2025 12:07 PM PDT [facility] [phone] AST 19 0 - 37 U/L 04/21/2025 12:07 PM PDT [facility] [phone] ALT 21 0 - 60 U/L 04/21/2025 12:07 PM PDT [facility] [phone] eGFR 82 >60 See Cmnt 04/21/2025 12:07 PM PDT [facility] [phone] Comment: Units: mL/min/1.73 m2. Estimated glomerular filtration rate values are calculated using the CKD-EPI Creatinine 2020 equation (non-race based). Serum (Blood) 04/21/2025 9:1 5 AM PDT 04/21/2025 9:47 AM PDT [facility] - 04/21/2025 12:07 PM PDT Patient fasting Laquita Maldonado DO LAB CHEMISTRY Final Result [facility] [address] [place] [address] [facility] [phone] [address] [place] [address] * (ABNORMAL) CBC WITH AUTOMATED DIFFERENTIAL (04/21/2025 9:15 AM PDT) White Blood Cell Count 5.1 4.0 - 11.0 K/uL 04/21/2025 10:42 AM PDT [facility] [phone] Red Blood Cell Count 4.16 3.90 - 5.40 M/uL 04/21/2025 10:42 AM PDT [facility] [phone] Hemoglobin 12.9 12.0 - 15.5 g/dL 04/21/2025 10:42 AM PDT [facility] [phone] Hematocrit 40.0 35.0 - 47.0 % 04/21/2025 10:42 AM PDT [facility] [phone] MCV 96 80 - 100 fL 04/21/2025 10:42 AM PDT [facility] [phone] MCH 31.0 27.0 - 33.0 pg 04/21/2025 10:42 AM PDT [facility] [phone] MCHC 32.3 31.0 - 36.0 g/dL 04/21/2025 10:42 AM PDT [facility] [phone] RDW 12.4 <16.4 % 04/21/2025 10:42 AM PDT [facility] [phone] Platelet Count 273 150 - 400 K/uL 04/21/2025 10:42 AM PDT [facility] [phone] Differential Type Automated 04/21/2025 10:43 AM PDT [facility] [phone] Neutrophil % 46 % 04/21/2025 10:43 AM PDT [facility] [phone] Lymphocyte % 32 % 04/21/2025 10:43 AM PDT [facility] [phone] Monocyte % 6 % 04/21/2025 10:43 AM PDT [facility] [phone] Eosinophil % 15 % 04/21/2025 10:43 AM PDT [facility] [phone] Basophil % 1 % 04/21/2025 10:43 AM PDT [facility] [phone] Abs. Neutrophil 2.4 1.5 - 8.0 K/uL 04/21/2025 10:43 AM PDT [facility] [phone] Abs. Lymphocyte 1.7 0.6 - 3.5 K/uL 04/21/2025 10:43 AM PDT [facility] [phone] Abs. Monocyte 0.3 0.0 - 0.8 K/uL 04/21/2025 10:43 AM PDT [facility] [phone] Abs. Eosinophil 0.8(H) 0.0 - 0.5 K/uL 04/21/2025 10:43 AM PDT [facility] [phone] Abs. Basophil 0.0 0.0 - 0.2 K/uL 04/21/2025 10:43 AM PDT [facility] [phone] Blood (Blood) 04/21/2025 9:1 5 AM PDT 04/21/2025 9:47 AM PDT Narrative [facility] - 04/21/2025 10:43 AM PDT Patient fasting Laquita Maldonado DO LAB HEMATOLOGY Final Result Performing Organization Address City/[facility]/ZIP Co de Phone Number [facility] [address] [place] [address] [facility] [phone] [address] [place] [address] * SISAL OPERATOR CYTOLOGY (03/12/2025) [employer] Weapons Technician Cytology (Liquid Based PAP) 03/12/2025 03/15/2025 Narrative [facility] DEPARTMENT OF PATHOLOGY - 03/17/2025 CASE: [id number] PATIENT: LUIS MANUEL RUBIO SPECIMEN SOURCE: Vaginal/Cervix/Endocervix CLINICAL HISTORY: No LMP given SPECIMEN: ThinPrep Pap Test SPECIMEN ADEQUACY: Satisfactory for cytologic evaluation. Endocervical and/or metaplastic squamous cells present. CYTOLOGIC DIAGNOSIS: NEGATIVE FOR INTRAEPITHELIAL LESION OR MALIGNANCY. RECOMMENDATIONS: Suggest repeat as clinically indicated. COMMENTS: This Pap test has been evaluated with the assistance of the ThinPrep Pap Test Imaging System. PRIOR PAP test diagnosis summary: (3 most recent) No cases found RICARDO PALENCIA(ASCP) Child Development Teacher Electronically signed 03/17/2025 Cervicovaginal cytology (PapTest) is an excellent screening test for the early detection of cancerous and precancerous cervical lesions. However, there is no guarantee that a lesion will be detected by the Pap test. Studies have shown Pap test interpretation to have an irreducible false negative rate of 5-15%. For this reason, obtaining Pap tests at recommended intervals is an important means of reducing cervical cancer risk. Laquita Maldonado DO LAB PATHOLOGY Final Result Performing Organization Address City/[facility]/ZIP Co de Phone Number [facility] DEPART[facility]OLOGY [address] [place] [address] from Last 3 Months Insurance U[id number] [place] [address] [place] [id number] Care Teams Web Production Designer Relationship Specialty Start Date End Date Laquita Maldonado DO [address] [place] [phone] PCP - General Family Medicine 01/17/24
--- OUTSIDE RECORDS SUMMARY | 2025-05-22 08:44 | XMS_ITS | Encounter Summary ---
Author Organization [place] Address [address] [place] [id number] Care Team Providers Care Behavioral Science Chair Name Role Phone No Ref-Primary, Physician Primary Care Provider Dnezel Morgan MD Unavailable [phone] Rachel Talbert Unavailable [phone] Ely Griffith MD Unavailable Encounter Details Date Type Department Care Team (Late st Contact Info) Description 05/14/2024 MyC Medical Advice [facility] [address] [phone] Ely Griffith MD [address] [place] [id number] Social History Tobacco Use Types Packs/Day Years Used Date Smoking Tobacco: Never Smokeless Tobacco: Never PHQ-2 Answer Date Recorded PHQ-2 Score 0 [...] on filedocumented in this encounter Care Teams Behavioral Science Chair Relationship Specialty Start Date End Date No Ref-Primary, Physician PCP - General 01/11/23 Denzel Morgan MD [address] [place] [address] Otolaryngology 01/11/23 Rachel Talbert AuD [address] [place] [address] [employer] Audiology 01/11/23 Ely Griffith MD [address] [place], [place] [id number] Assigned Musculoskeletal Provider 10/24/23 documented as of this encounter
--- NOTE | 2025-05-22 09:04 | CRLHL7_ITS ---
For Patients: As a result of the Century Cures Act, medical imaging exams and procedure reports are released immediately into your electronic medical record. You may view this report before your referring provider. If you have questions, please contact your health care provider. INDICATION: Abdominal pain TECHNIQUE: CT abdomen and pelvis with 69 mL Isovue 370 intravenous contrast. COMPARISON: None. FINDINGS: Lack of intra-abdominal fat limits evaluation. Lower chest: Unremarkable. Liver: Normal in size and attenuation. No suspicious masses. Gallbladder and bile ducts: No stones or inflammation. No biliary dilatation. Pancreas: Unremarkable. No mass or inflammation. Spleen: Normal in size. No masses. Adrenal glands: Normal in size. No nodules. Kidneys: Bilateral perinephric minimal fluid inflammatory change patchy enhancement of the kidneys findings suspicious for pyelonephritis. No hydronephrosis there may be some mild urothelial thickening. GI tract: Abundant stool in the colon lack of intra-abdominal fat limits evaluation. Appendix not seen no secondary findings for appendicitis. Vasculature: Abdominal aorta is normal in caliber. Lymph nodes: No lymphadenopathy. Peritoneum/Abdominal Wall: Unremarkable. No sign of mass or infiltration. No free air or significant free fluid. Pelvis: Urinary bladder incompletely distended mild wall thickening Bones: Unremarkable for age. IMPRESSION: 1. Mild bilateral perinephric fluid inflammatory changes with patchy enhancement suspicious for pyelonephritis. Some possible minimal urothelial thickening. Please note that all CT scans at this facility use dose modulation, iterative reconstruction, and/or weight-based dosing when appropriate to reduce radiation dose to as low as reasonably achievable. Dictated by Verona Khan MD @ 05/22/2025 10:17:53 AM (Electronically Signed)
[2025-05-22 09:05] LABS: Appearance Urine Turbid (Clear)
[2025-05-22 09:25] LABS: Lactate* 0.9 mmol/L (0.5-1.9)
[2025-05-22 09:28] LABS: Hematocrit 36.3 % (33.0-51.0); Hemoglobin* 11.8 gm/dL (12.0-16.0); Immature Granulocytes Abs Auto 0.10 K/uL (0.00-0.30); Immature Granulocytes Pct Auto 0.4 %; Lymphocytes Absolute Auto 0.50 K/uL (0.90-2.90); Mean Corpuscular HGB Conc 33 gm/dL (32-36); Mean Corpuscular Hemoglobin 31 pg (26-34); Mean Corpuscular Volume 94 fL (80-100); RDW Coefficient of Variation % 12.4 % (11.5-15.5); Red Blood Count 3.87 m/uL (4.00-5.20); Slide Review Reflex No; White Blood Count* 13.75 K/uL (4.50-11.00)
[2025-05-22 09:28] LABS: Ur HCG Qualitative* Negative (Negative)
[2025-05-22 09:41] LABS: Albumin* 4.0 g/dL (3.3-5.0); Chloride* 102 mmol/L (96-114); Potassium* 4.2 mmol/L (3.6-5.1); Sodium* 135 mmol/L (135-149)
[2025-05-22 09:43] LABS: Alanine Aminotransferase* 18 U/L (4-35); Anion Gap 8 mEq/L (7-15); Aspartate Amino Transferase* 29 U/L (12-35); Blood Urea Nitrogen* 14 mg/dL (5-24); Carbon Dioxide* 25 mmol/L (20-32); Creatinine* 1.0 mg/dL (0.5-1.5); Est. Creatinine Clearance* 83.31; Estimated Glomerular Filt Rate 82 ml/min
[2025-05-22 09:44] LABS: Alkaline Phosphatase* 65 U/L (40-150); Bilirubin Total* 0.9 mg/dL (0.1-1.5); Calcium* 9.1 mg/dL (8.4-10.6); Glucose* 121 mg/dL (60-115); Total Protein* 7.4 g/dL (6.0-8.3)
[2025-05-22] MEDS: cefTRIAXone 1 GM in 0.9 % SODIUM CHLORIDE Mini-bag 100 ML IVPB (11:16)
--- NOTE | 2025-05-22 11:16 | ED.GENADULT ---
HPI - General Adult General Chief complaint: Urogenital Problems, Female Stated complaint: UTI symptoms, fever Time Seen by Provider: 05/22/25 08:56 History of Present Illness HPI narrative: Patient is a 19-year-old woman who was recently treated for urinary tract infection in [place]. At that time she had dysuria and urinary frequency. Culture grew out a somewhat resistant organism of E coli. Patient was treated with Macrobid and proximally 4 days after the end of her antibiotic treatment her symptoms have worsened. She now is having flank pain and overt abdominal pain. No nausea no vomiting. When she arrived she does arrive with a pulse of 115 and temperature 101. Patient is otherwise healthy and has no chronic medical issues. 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, unspecified leg (ICD-10) Anxiety ?F41.9 - Anxiety disorder, unspecified (ICD-10) Surgical History History of adenoidectomy (~2016) ?Z90.89 - Acquired absence of other organs (ICD-10) History of left knee surgery (01/2020) ?Z98.890 - Other specified postprocedural states (ICD-10) History of right knee surgery (01/2020) ?Z98.890 - Other specified postprocedural states (ICD-10) Social History Smoking Status: Never smoker Do you use any of these nicotine containing products: None How often do you have a drink containing alcohol: monthly or less AUDIT-C Alcohol total score: 1 Non-prescribed substance use: denies use Caffeine: No Exam Narrative: Exam Narrative: EXAM GENERAL: Patient appears comfortable and well. EYES: No scleral icterus. ENT: Tympanic membranes and oropharynx normal. THYROID: no thyroid nodules or thyromegaly. LYMPH: No supraclavicular or cervical lymphadenopathy. SKIN: Visible skin seen during exam normal or with benign process only. EXT: No dependent lower extremity pedal edema. HEART: Regular rate and rhythm with no murmurs, rubs, or gallops. LUNGS: Clear to auscultation bilaterally with no crackles or wheezes. ABD: Soft, non tender, non distended. PSYCH: Good eye contact, speech is not pressured. Const: Vital Signs, click to edit/add: Vital Signs - 24 hr 05/22/25 08:50 05/22/25 10:10 Temperature 100.4 F H 98.9 F Pulse Rate [Pulse Oximeter] 116 H 94 Respiratory Rate 18 16 Blood Pressure [Le ft Upper Arm] 116/67 106/49 L Pulse Oximetry 97 98 Oxygen Delivery Me thod Room Air Room Air Course Vital Signs Vital signs: Initial Vital Signs Temperature 100.4 F H 05/22/25 08:50 Temperature Source Temporal Artery Scan 05/22/25 08:50 Pulse Rate 116 H 05/22/25 08:50 Respiratory Rate 18 05/22/25 08:50 Blood Pressure 116/67 05/22/25 08:50 Blood Pressure Mean 83 05/22/25 08:50 Pulse Oximetry 97 05/22/25 08:50 Oxygen Delivery Method Room Air 05/22/25 08:50 Vital Signs Temperature 100.4 F H 05/22/25 08:50 Pulse Rate 116 H 05/22/25 08:50 Respiratory Rate 18 05/22/25 08:50 Blood Pressure 116/67 05/22/25 08:50 Pulse Oximetry 97 05/22/25 08:50 Oxygen Delivery Method Room Air 05/22/25 08:50 Temperature 98.9 F 05/22/25 10:10 Pulse Rate 94 05/22/25 10:10 Respiratory Rate 16 05/22/25 10:10 Blood Pressure 106/49 L 05/22/25 10:10 Pulse Oximetry 98 05/22/25 10:10 Oxygen Delivery Method Room Air 05/22/25 10:10 Medications Administered Medications: Discontinued Medications Generic Name Dose Route Start Last Admin Trade Name Vince PRN Reason Stop Dose Admin Aspirin 324 mg 05/22/25 10:37 05/22/25 10:39 Aspirin 81 Mg Tab.Chew PO 05/22/25 10:38 Not Given ONCE ONE Sodium Chloride 1,000 mls @ 1,000 mls/hr 05/22/25 09:05 05/22/25 10:09 0.9 % Sodium Chloride 1000 Ml IV 05/22/25 10:04 Infused .Q1H JAMES Infusion Ceftriaxone Sodium 1 gm/ 100 mls @ 200 mls/hr 05/22/25 11:07 05/22/25 11:16 Sodium Chloride IVPB 05/22/25 11:08 200 mls/hr ONCE ONE Administration Medical Decision Making MDM Narrative Medical decision making narrative: Patient is a healthy 19-year-old woman who presents with urinary symptoms. She is noted to be tachycardic and febrile. CT of the abdomen pelvis shows bilateral pyelonephritis. Previous urine culture shows a somewhat resistant organism. I did give her IV fluids and cultured her blood in urine. White blood cell count is elevated at 13. She is started on IV Rocephin after and IV normal saline bolus. Patient is admitted for further evaluation and treatment. Lab Data Labs: Lab Results 05/22/25 05/22/25 05/22/25 Range/Units 08:42 09:20 09:21 WBC 13.75 H (4.50-11.00) K/uL RBC 3.87 L (4.00-5.20) m/uL Hgb 11.8 L (12.0-16.0) gm/dL Hct 36.3 (33.0-51.0) % MCV 94 (80-100) fL MCH 31 (26-34) pg MCHC 33 (32-36) gm/dL RDW Coeff of Tristan 12.4 (11.5-15.5) % Plt Count 225 (140-440) K/uL Neut % (Auto) 88.6 H (42.0-72.0) % Lymph % (Auto) 3.8 L (20-44) % [place] % (Auto) 7.1 (0.0-11.0) % Eos % (Auto) 0.0 (0.0-7.0) % Baso % (Auto) 0.1 (0.0-3.0) % Neut # (Auto) 12.20 H (1.7-7.0) K/uL Lymph # (Auto) 0.50 L (0.90-2.90) K/uL [place] # (Auto) 1.00 H (0.00-0.90) K/UL Eos # (Auto) 0.00 (0.00-0.50) K/uL Baso # (Auto) 0.00 (0.00-0.30) K/uL Abs Immat Gran (auto) 0.10 (0.00-0.30) K/uL Imm/Tot Granulo (auto) 0.4 % Sodium 135 (135-149) mmol/L Potassium 4.2 (3.6-5.1) mmol/L Chloride 102 (96-114) mmol/L Carbon Dioxide 25 (20-32) mmol/L Anion Gap 8 (7-15) mEq/L BUN 14 (5-24) mg/dL Creatinine 1.0 (0.5-1.5) mg/dL Estimated Creat Clear 83.31 Estimated GFR 82 ml/min Glucose 121 H (60-115) mg/dL Lactate 0.9 (0.5-1.9) mmol/L Calcium 9.1 (8.4-10.6) mg/dL Total Bilirubin 0.9 (0.1-1.5) mg/dL AST 29 (12-35) U/L ALT 18 (4-35) U/L Alkaline Phosphatase 65 (40-150) U/L Total Protein 7.4 (6.0-8.3) g/dL Albumin 4.0 (3.3-5.0) g/dL Urine Color Dark yellow (Yellow) Urine Appearance Turbid A (Clear) Urine pH 6.0 (5.0-8.5) Ur Specific [place] 1.010 (1.000-1.030) Urine Protein 3+ A (Negative) Urine Glucose (UA) Negative (Negative) Urine Ketones 2+ A (Negative) Urine Blood 2+ A (Negative) Urine Nitrite Positive A (Negative) Urine Bilirubin Negative (Negative) Urine Urobilinogen 1.0 (0.2-1.0) Ur Leukocyte Esterase 2+ A (Negative) Urine RBC 2-5 A (0-2) Urine WBC 25-50 A (0-5) Ur Squamous Epith Cells Many A (None-Few) Other Sediment (None) Urine Bacteria Moderate A (None) Urine HCG, Qual Negative (Negative) Discharge Plan Discharge Clinical Impression: Pyelonephritis Patient Disposition: Home, Self-Care Condition: Stable Instructions: Kidney Infection (ED) Activity Level: Other Discharge Diet: Other Prescriptions: No Action levocetirizine [Xyzal] 5 mg tablet 5 mg PO QDAY escitalopram oxalate 5 mg tablet 5 mg PO QDAY Follow Up/Referrals: Provider,Not a Local [Primary Care Provider, Family Practice] Stand Alone Forms: [employer] Info Instructions
--- NOTE | 2025-05-22 11:47 | PM.IMHP1 ---
Assessment and Plan Assessment and plan (1) Pyelonephritis: Problem comment: - with notable fever, hypotension, tachycardia in ER, shaking rigors - reassuring lactate - IVFs (received 1L in ER, will repeat 2nd L on the floor and continue maintenance fluids), IV Ceftriaxone - blood and urine cultures pending Status: Acute Plan - per above - given acuity of illness, requires inpatient level of care management - await culure results Hospitalist- H&P: HPI History of Present Illness Date Seen: 05/22/25 Chief complaint: UTI symptoms, fever Narrative: Arsen Carreon is a 19 year old female with history of UTIs, most recently treated for an E Coli UTI (culture collected 05/09), who presented to the ER this morning with dysuria, frequency, fever, back pain, suprapubic pain. She finished her most recent course of Macrobid approximately 10 days ago. No concern for STIs. Recently travelled back to [place] from [place] to start her senior year at [employer]. Culture from 05/09 (patient has results on her phone) was sensitive to Cefazolin, Cefepime, Cefotoxitin, Ceftriaxone, Meropenem, Macrobid; resistant to Batrim, Gentamicin, Cipro, Ampicillin. ER Course and Findings: - Pulse 115, BP 106/49, T 100.4 - WBC 13.75 with PMN predominance - CT concerning for bilateral pyelonephritis - received 1L of NS and 1g of Ceftriaxone (tolerated well, h/o rash with PCN but no anaphylaxis) - blood and urine cultures collected Generally healthy, [employer] student. Histories reviewed, updated below. Feels better after receiving IVFs and antibiotics in the ER. Review of Systems Narrative: - appetite low, no nausea or vomiting - no cough or chest pain. Has had soccer teammates with + COVID Medical Decision Making Medical Decision Making Code Status: Full Has patient completed a Health Care Directive: No During This Stay, Who Would You Like To Make Decisions For You In The Event You Are Unable To Make Them For Yourself?: Mother Lynette [facility] Medical History (Updated 05/22/25 @ 13:02 by Anna Noble MD) Deviated septum ?J34.2 - Deviated nasal septum (ICD-10) MCL sprain of left knee ?S83.412A - Sprain of medial collateral ligament of left knee, initial encounter (ICD-10) Recurrent sinus infections ?J32.9 - Chronic sinusitis, unspecified (ICD-10) 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, unspecified leg (ICD-10) Anxiety ?F41.9 - Anxiety disorder, unspecified (ICD-10) Surgical History (Updated 05/22/25 @ 12:33 by Anna Noble MD) H/O nasal septoplasty ?Z98.890 - Other specified postprocedural states (ICD-10) History of adenoidectomy (~2015) ?Z90.89 - Acquired absence of other organs (ICD-10) History of left knee surgery (01/2020) ?Z98.890 - Other specified postprocedural states (ICD-10) History of right knee surgery (01/2020) ?Z98.890 - Other specified postprocedural states (ICD-10) Social History (Updated 05/22/25 @ 12:34 by Anna Noble MD) Narrative: [employer] student, 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 No tobacco use or concerning ETOH use. Full Code Smoking Status: Never smoker Do you use any of these nicotine containing products: None How often do you have a drink containing alcohol: monthly or less AUDIT-C Alcohol total score: 1 Non-prescribed substance use: denies use Caffeine: No Meds Home Medications and Allergies Home Medications ?Medication ?Instructions ?Recorded ?Confirmed ?Type levocetirizine 5 mg tablet (Xyzal) 5 mg PO QDAY 06/07/23 11/20/23 History escitalopram oxalate 5 mg tablet 5 mg PO DAILY 08/13/23 05/22/25 History norethindrone acetate 1.5 1 tab PO DAILY 05/22/25 05/22/25 History mg-ethinyl estradiol 30 mcg tablet (Pam) Home Medication Comments: OCPs daily, Xyzal daily, Escitalopram daily. Prn Meloxicam for knee pain during soccer season. Allergies Allergy/AdvReac Type Severity Reaction Status Date / Time Penicillins Allergy Intermediate Rash Verified 05/22/25 08:48 Exam Narrative: Exam Narrative: GEN: Alert and oriented. Did have an episode of shaking rigors after arrival to the floor, improved with IVFs/Tylenol/Toradol HEENT: Normal external ears, EOMIs bilaterally, no scleral icterus CV: RRR, No concerning murmurs, rubs, or gallops R: LCTA bilaterally, air movement adequate Back: Mild CVA ttp bilaterally Ext: wwp, no concerning edema Skin: No concerning skin lesions or rashes on exposed skin Neuro: No focal deficits Psych: Appropriate Const: Vital Signs, click to edit/add: Vital Signs - 24 hr 05/22/25 08:50 05/22/25 10:10 Temperature 100.4 F H 98.9 F Pulse Rate [Pulse Oximeter] 116 H 94 Respiratory Rate 18 16 Blood Pressure [Le ft Upper Arm] 116/67 106/49 L Pulse Oximetry 97 98 Oxygen Delivery Me thod Room Air Room Air Hospitalist - H&P: Result Labs Labs: Short CBC 05/22/25 Range/Units 09:20 WBC 13.75 H (4.50-11.00) K/uL Hgb 11.8 L (12.0-16.0) gm/dL Hct 36.3 (33.0-51.0) % Plt Count 225 (140-440) K/uL BMP 05/22/25 09:20 Sodium 135 Potassium 4.2 Chloride 102 Carbon Dioxide 25 BUN 14 Creatinine 1.0 Glucose 121 H Calcium 9.1 Liver Function 05/22/25 Range/Units 09:20 Total Bilirubin 0.9 (0.1-1.5) mg/dL AST 29 (12-35) U/L ALT 18 (4-35) U/L Alkaline Phosphatase 65 (40-150) U/L Albumin 4.0 (3.3-5.0) g/dL Urine 05/22/25 Range/Units 08:42 Urine Color Dark yellow (Yellow) Urine Appearance Turbid A (Clear) Urine pH 6.0 (5.0-8.5) Ur Specific [place] 1.010 (1.000-1.030) Urine Protein 3+ A (Negative) Urine Glucose (UA) Negative (Negative)
[2025-05-22] MEDS: ACETAMINOPHEN 325 MG TABLET 975 MG PO ×2 (12:51→19:00)
[2025-05-22] MEDS: LACTATED RINGERS 1000 ML 1,000 ML IV (13:16)
[2025-05-22] MEDS: LACTATED RINGERS 1000 ML 1,000 ML 125 ML IV ×2 (14:00→22:50)
[2025-05-22] MEDS: 0.9 % SODIUM CHLORIDE 500 ML 500 ML IV (16:30)
--- NOTE | 2025-05-22 18:54 | PC.NURSE ---
Nursing Care Hours: [id number] pt ambulated onto unit. Febrile and tachycardic on arrival. During admission pt developed significant rigors. PO and IV pain and antepyretic meds given and 1L bolus started. Rigors stopped within 15-20min. Pt became diaphoretic after rigors. Tyenol effective at bringing fever down. Soft BP bilat x1, 500ml bolus ordered and administered. By end of shift, NSR and afebrile. Pt independent in room and tolerating regular diet.
[2025-05-22] MEDS: NORETHINDRONE AC ETH ESTRADIOL 1 EACH PO (20:24)
[2025-05-22] MEDS: LEVOCETIRIZINE 5 MG 5 EACH PO (20:24)
[2025-05-23] VITALS (8 sets, daily range): BP systolic 114–127; BP diastolic 58–81; PULSE 65–118; RESP 16–18; TEMP 36.6–37; O2SAT 97–99
[2025-05-23] MEDS: ACETAMINOPHEN 325 MG TABLET 975 MG PO ×4 (01:12→19:03)
--- NOTE | 2025-05-23 04:54 | PC.NURSE ---
End of shift report [id number]: VSS. Afebrile.?Denies pain. Pts mom is at the bedside. Pt is ind in room, call light within reach.?
[2025-05-23] MEDS: LACTATED RINGERS 1000 ML 1,000 ML 125 ML IV ×2 (06:55→18:55)
[2025-05-23] MEDS: ONDANSETRON ODT 4 MG TAB PO (06:56)
--- NOTE | 2025-05-23 07:12 | P.IMPN_ITS ---
Assessment and Plan Assessment and plan (1) Pyelonephritis: Problem comment: - with notable fever, hypotension, tachycardia in ER, shaking rigors - reassuring lactate, blood culture currently NGTD - urine culture growing >100k GNRs - continue IVFs given persistent tachycardia, working on po intake Status: Acute Plan - per above - if continues to clinically improve, possible d/c home as early as tomorrow if blood culture remains negative and urine culture sensitivities obtained - mother updated bedside, questions answered Subjective Date Seen: 05/23/25 Interval history: Arsen is a 19 yo female with history of UTI who was admitted to the hospital on 05/22 for pyelonephritis; presented with rigors, fever, tachycardia, hypotension. Recently treated for an E coli UTI (05/09/25) with oral Macrobid. Tolerating with IV ceftriaxone and IV fluids. Had one episode of rigors overnight and episode of vomiting this morning. Working on po intake, mild nausea. Urine culture growing >100k of GNRs, blood culture currently NGTD. Exam Narrative: Exam Narrative: GEN: Alert and oriented, sitting comfortably in bed, nontoxic during my exam HEENT: EOMIs bilaterally, no scleral icterus CV: Regular rhythm, rate 100s during my exam, no concerning murmurs R: LCTA bilaterally without concerning wheezing Back: No concerning CVA ttp Ext: wwp, no concerning edema Skin: No concerning skin lesions or rashes on exposed skin Neuro: Nonfocal Psych: Appropriate Const: Vital Signs, click to edit/add: Vital Signs - 24 hr 05/22/25 08:50 05/22/25 10:10 05/22/25 12:51 Temperature 100.4 F H 98.9 F 100.3 F H Pulse Rate Pulse Rate [Pulse Oximeter] 116 H 94 Pulse Rate [Right Pulse Oximeter] Respiratory Rate 18 16 Blood Pressure [Le ft Arm] Blood Pressure [Le ft Upper Arm] 116/67 106/49 L Blood Pressure [Ri ght Arm] Pulse Oximetry 97 98 Oxygen Delivery Me thod Room Air Room Air 05/22/25 14:38 05/22/25 15:00 05/22/25 15:00 Temperature 100.3 F H Pulse Rate 95 Pulse Rate [Pulse Oximeter] Pulse Rate [Right Pulse Oximeter] 110 H 110 H Respiratory Rate 24 18 Blood Pressure [Le ft Arm] Blood Pressure [Le ft Upper Arm] Blood Pressure [Ri ght Arm] 133/75 Pulse Oximetry 97 Oxygen Delivery Me thod Room Air 05/22/25 15:00 05/22/25 16:33 05/22/25 17:47 Temperature 98.4 F 98.4 F Pulse Rate Pulse Rate [Pulse Oximeter] Pulse Rate [Right Pulse Oximeter] 94 Respiratory Rate 18 Blood Pressure [Le ft Arm] 82/49 L 107/59 L Blood Pressure [Le ft Upper Arm] Blood Pressure [Ri ght Arm] 88/39 L Pulse Oximetry 100 Oxygen Delivery Fl thod Room Air 05/22/25 19:00 05/22/25 19:00 05/22/25 22:11 Temperature 97.9 F 98.5 F Pulse Rate Pulse Rate [Pulse Oximeter] Pulse Rate [Right Pulse Oximeter] 89 67 Respiratory Rate 16 16 Blood Pressure [Le ft Arm] 110/49 L Blood Pressure [Le ft Upper Arm] Blood Pressure [Ri ght Arm] Pulse Oximetry 99 [facility] 05/22/25 22:17 05/22/25 23:00 05/22/25 23:00 Temperature 98.5 F Pulse Rate 69 Pulse Rate [Pulse Oximeter] Pulse Rate [Right Pulse Oximeter] 67 Respiratory Rate 16 Blood Pressure [Le ft Arm] 97/41 L 117/69 Blood Pressure [Le ft Upper Arm] Blood Pressure [Ri ght Arm] Pulse Oximetry 99 Oxygen Delivery Fl thod Room Air 05/23/25 02:12 Temperature 98.6 F Pulse Rate Pulse Rate [Pulse Oximeter] Pulse Rate [Right Pulse Oximeter] 85 Respiratory Rate 16 Blood Pressure [Le ft Arm] 120/58 L Blood Pressure [Le ft Upper Arm] Blood Pressure [Ri ght Arm] Pulse Oximetry 98 [facility] Labs Labs: Laboratory Results - last 24 hr 05/22/25 05/22/25 05/22/25 08:42 09:20 09:21 WBC 13.75 H RBC 3.87 L Hgb 11.8 L Hct 36.3 MCV 94 MCH 31 MCHC 33 RDW Coeff of Tristan 12.4 Plt Count 225 Neut % (Auto) 88.6 H Lymph % (Auto) 3.8 L [place] % (Auto) 7.1 Eos % (Auto) 0.0 Baso % (Auto) 0.1 Neut # (Auto) 12.20 H Lymph # (Auto) 0.50 L [place] # (Auto) 1.00 H Eos # (Auto) 0.00 Baso # (Auto) 0.00 Abs Immat Gran (auto) 0.10 Imm/Tot Granulo (auto) 0.4 Sodium 135 Potassium 4.2 Chloride 102 Carbon Dioxide 25 Anion Gap 8 BUN 14 Creatinine 1.0 Estimated Creat Clear 83.31 Estimated GFR 82 Glucose 121 H Lactate 0.9 Calcium 9.1 Total Bilirubin 0.9 AST 29 ALT 18 Alkaline Phosphatase 65 Total Protein 7.4 Albumin 4.0 Urine Color Dark yellow Urine Appearance Turbid A Urine pH 6.0 Ur Specific [place] 1.010 Urine Protein 3+ A Urine Glucose (UA) Negative Urine Ketones 2+ A Urine Blood 2+ A Urine Nitrite Positive A Urine Bilirubin Negative Urine Urobilinogen 1.0 Ur Leukocyte Esterase 2+ A Urine RBC 2-5 A Urine WBC 25-50 A Ur Squamous Epith Cells Many A Other Sediment Urine Bacteria Moderate A Urine HCG, Qual Negative
[2025-05-23 07:44] LABS: Chloride* 104 mmol/L (96-114); Hematocrit 30.7 % (33.0-51.0); Hemoglobin* 9.8 gm/dL (12.0-16.0); Immature Granulocytes Pct Auto 0.3 %; Mean Corpuscular HGB Conc 32 gm/dL (32-36); Mean Corpuscular Hemoglobin 30 pg (26-34); Mean Corpuscular Volume 95 fL (80-100); Potassium* 3.8 mmol/L (3.6-5.1); RDW Coefficient of Variation % 12.8 % (11.5-15.5); Red Blood Count 3.24 m/uL (4.00-5.20); Sodium* 134 mmol/L (135-149); White Blood Count* 11.14 K/uL (4.50-11.00)
[2025-05-23 07:47] LABS: Anion Gap 5 mEq/L (7-15); Blood Urea Nitrogen* 13 mg/dL (5-24); Calcium* 8.0 mg/dL (8.4-10.6); Carbon Dioxide* 25 mmol/L (20-32); Creatinine* 0.8 mg/dL (0.5-1.5); Est. Creatinine Clearance* 104.14; Estimated Glomerular Filt Rate 107 ml/min; Glucose* 92 mg/dL (60-115)
[2025-05-23 07:50] LABS: Immature Granulocytes Abs Auto 0.00 K/uL (0.00-0.30); Lymphocytes Absolute Auto 0.80 K/uL (0.90-2.90)
[2025-05-23 07:51] LABS: Slide Review Reflex No
[2025-05-23] MEDS: ESCITALOPRAM 10 MG TABLET 5 MG PO (08:38)
[2025-05-23] MEDS: LACTATED RINGERS 1000 ML 1,000 ML IV (09:51)
[2025-05-23] MEDS: cefTRIAXone 2 GM in 0.9 % SODIUM CHLORIDE Mini-bag 100 ML IVPB (11:01)
[2025-05-23] MEDS: SODIUM CHLORIDE 0.9 % (FLUSH) 10 ML SYRINGE 5 ML IVF (11:13)
[2025-05-23] MEDS: LACTOBACILLUS ACIDOPHILUS 1 TABLET 2 TAB PO ×2 (12:41→18:55)
--- NOTE | 2025-05-23 19:41 | PC.NURSE ---
End of shift [id number] - Pt alert, oriented, cooperative. Mother at bedside. Tolerating RA and regular diet/fluids. Up independently in room. Reports pain in abdomen and low back as 2/10, pt refused comfort measures and medications offered by RN. Pt reports feeling better today. Afebrile, noted to be intermittently tachycardic during shift. Appears to be resting comfortably in bed with call light within reach at end of shift.
[2025-05-23] MEDS: NORETHINDRONE AC ETH ESTRADIOL 1 EACH PO (22:08)
[2025-05-23] MEDS: MELATONIN 3 MG TABLET PO (22:09)
[2025-05-23] MEDS: LEVOCETIRIZINE 5 MG 5 EACH PO (22:09)
[2025-05-24] VITALS (11 sets, daily range): BP systolic 119–151; BP diastolic 65–87; PULSE 64–113; RESP 16–18; TEMP 36.6–39.1; O2SAT 96–99
[2025-05-24] MEDS: LACTATED RINGERS 1000 ML 1,000 ML 125 ML IV (02:43)
[2025-05-24 06:33] LABS: Hematocrit 28.1 % (33.0-51.0); Hemoglobin* 9.1 gm/dL (12.0-16.0); Immature Granulocytes Abs Auto 0.03 K/uL (0.00-0.30); Immature Granulocytes Pct Auto 0.3 %; Mean Corpuscular HGB Conc 32 gm/dL (32-36); Mean Corpuscular Hemoglobin 30 pg (26-34); Mean Corpuscular Volume 94 fL (80-100); RDW Coefficient of Variation % 12.7 % (11.5-15.5); Red Blood Count 3.00 m/uL (4.00-5.20); White Blood Count* 9.07 K/uL (4.50-11.00)
[2025-05-24 06:40] LABS: Lymphocytes Absolute Auto 0.90 K/uL (0.90-2.90); Slide Review Reflex No
[2025-05-24 06:51] LABS: Chloride* 107 mmol/L (96-114); Potassium* 3.8 mmol/L (3.6-5.1); Sodium* 133 mmol/L (135-149)
[2025-05-24 06:54] LABS: Anion Gap 4 mEq/L (7-15); Blood Urea Nitrogen* 8 mg/dL (5-24); Calcium* 7.9 mg/dL (8.4-10.6); Carbon Dioxide* 22 mmol/L (20-32); Creatinine* 0.9 mg/dL (0.5-1.5); Est. Creatinine Clearance* 92.56; Estimated Glomerular Filt Rate 93 ml/min; Glucose* 90 mg/dL (60-115)
--- NOTE | 2025-05-24 07:02 | PC.NURSE ---
The patient is pleasant with care interactions throughout the night. VSS on RA, afebrile. No reports of pain throughout the night. The patient ambulated on the unit with her mom. Po intake is adequate. Iv is infusing LR. Call light within reach. HR is tachy with activity, although returns to normal when the patient is at rest. Senia DIAZ BSN
[2025-05-24] MEDS: ESCITALOPRAM 10 MG TABLET 5 MG PO (08:26)
[2025-05-24] MEDS: LACTOBACILLUS ACIDOPHILUS 1 TABLET 2 TAB PO ×3 (08:26→17:50)
[2025-05-24] MEDS: ACETAMINOPHEN 325 MG TABLET 975 MG PO ×2 (08:27→16:09)
--- NOTE | 2025-05-24 09:16 | PM.IMPN1 ---
Assessment and Plan Assessment and plan (1) Pyelonephritis: Problem comment: - presented with fever, hypotension, tachycardia in ER, shaking rigors; + pyelonephritis on imaging - reassuring lactate, blood culture currently NGTD - urine culture + for ESBL; transitioned from Ceftriaxone (05/22-05/23) to Ertapenem (05/24) - persistent fever 05/24 Status: Acute Plan - per above (stop IVFs, Edema Wear vs Teds, SCDs for edema, encourage protein intake) - possibly home tomorrow if remains afebrile - Lovenox for ppx - mom updated bedside, questions answered Subjective Date Seen: 05/24/25 Interval history: Arsen is a 19 yo female with history of UTI who was admitted to the hospital on 05/22 for pyelonephritis; presented with rigors, fever, tachycardia, hypotension. Recently treated for an E coli UTI (05/09/25) with oral Macrobid. Upon admission, treated with IV ceftriaxone and IV fluids. Urine culture resulted this morning as ESBL; sensitive to Ertapenem, Meropenem, Macrobid, and Zosyn. Blood culture remains NGTD. This morning, temperature of 100.5, rest of her VS have improved (no tachycardia when temperature is normal). WBC has normalized. Working on po intake (mild nausea), has some edema of BLEs (presumably from IVFs), no other concerns for hospitalist team. Exam Narrative: Exam Narrative: GEN: Alert and oriented, appears less ill than on admission, answering questions appropriately HEENT: EOMIs bilaterally, no scleral icterus CV: Regular rhythm, rate 90-100 during my exam R: LCTA bilaterally without concerning wheezing, air movement adequate Ext: Nonpitting edema bilateral lower extremities, symmetric Skin: No concerning skin lesions or rashes on exposed skin Neuro: Nonfocal Psych: Appropriate Const: Vital Signs, click to edit/add: Vital Signs - 24 hr 05/23/25 11:00 05/23/25 15:00 05/23/25 15:00 Temperature 98.4 F 98 F Pulse Rate 83 Pulse Rate [Right Pulse Oximeter] 89 96 Respiratory Rate 18 18 Blood Pressure [Le ft Arm] 117/65 122/71 Blood Pressure [Ri ght Arm] Pulse Oximetry 98 99 Oxygen Delivery Me thod Room Air Room Air 05/23/25 19:00 05/23/25 19:30 05/23/25 23:00 Temperature 98.4 F 98.6 F Pulse Rate 118 H Pulse Rate [Right Pulse Oximeter] 95 83 Respiratory Rate 16 18 Blood Pressure [Le ft Arm] 114/67 Blood Pressure [Ri ght Arm] 127/81 Pulse Oximetry 97 97 Oxygen Delivery Me thod Room Air Room Air 05/23/25 23:00 05/24/25 02:44 05/24/25 08:23 Temperature 98.9 F 100.5 F H Pulse Rate 65 Pulse Rate [Right Pulse Oximeter] 76 95 Respiratory Rate 16 18 Blood Pressure [Le ft Arm] Blood Pressure [Ri ght Arm] 128/73 151/85 H Pulse Oximetry 99 96 Oxygen Delivery Me thod Room Air Room Air 05/24/25 08:27 05/24/25 08:44 Temperature 100.5 F H Pulse Rate 113 H Pulse Rate [Right Pulse Oximeter] Respiratory Rate Blood Pressure [Le ft Arm] Blood Pressure [Ri ght Arm] Pulse Oximetry Oxygen Delivery Me thod Labs Labs: Laboratory Results - last 24 hr 05/24/25 06:12 WBC 9.07 RBC 3.00 L Hgb 9.1 L Hct 28.1 L MCV 94 MCH 30 MCHC 32 RDW Coeff of Tristan 12.7 Plt Count 195 Neut % (Auto) 83.6 H Lymph % (Auto) 9.7 L [place] % (Auto) 6.0 Eos % (Auto) 0.2 Baso % (Auto) 0.2 Neut # (Auto) 7.60 H Lymph # (Auto) 0.90 [place] # (Auto) 0.50 Eos # (Auto) 0.02 Baso # (Auto) 0.02 Abs Immat Gran (auto) 0.03 Imm/Tot Granulo (auto) 0.3 Sodium 133 L Potassium 3.8 Chloride 107 Carbon Dioxide 22 Anion Gap 4 L BUN 8 Creatinine 0.9 Estimated Creat Clear 92.56 Estimated GFR 93 Glucose 90 Calcium 7.9 L
[2025-05-24] MEDS: ERTAPENEM 1 GM in 0.9 % SODIUM CHLORIDE Mini-bag 100 ML IVPB (09:43)
--- NOTE | 2025-05-24 19:26 | PC.NURSE ---
Pt is alert and oriented. Pt had rigors with 102.3 fever around 1600, relieved with PRN TeteenolMD notified. Temp decreased to 99.5 F. Pt denies pain. Pt is independent in room. Saline lock.
[2025-05-24] MEDS: LEVOCETIRIZINE 5 MG 5 EACH PO (21:46)
[2025-05-24] MEDS: SODIUM CHLORIDE 0.9 % (FLUSH) 10 ML SYRINGE 5 ML IVF (21:47)
[2025-05-24] MEDS: NORETHINDRONE AC ETH ESTRADIOL 1 EACH PO (21:47)
[2025-05-24] MEDS: MELATONIN 3 MG TABLET PO (21:57)
[2025-05-24] MEDS: ENOXAPARIN 40 MG/0.4 ML INJ SUBCUT (23:01)
--- NOTE | 2025-05-24 23:37 | PC.NURSE ---
[id number]: Pt. is AOx4. VSS. Pleasant and active in her cares. Mother was bedside and supportive. Education provided on anticoagulant meds/ prevention. SCDs and TEDS on. Pt. sleeping comfortably in bed, call light w/i reach.
[2025-05-25 03:00] VITALS: BP 135/78; PULSE 99; RESP 16; TEMP 37.7; O2SAT 95
[2025-05-25 03:37] VITALS: TEMP 37.7
[2025-05-25] MEDS: ACETAMINOPHEN 325 MG TABLET 975 MG PO (03:37)
[2025-05-25 05:06] VITALS: TEMP 37.1
[2025-05-25 05:08] VITALS: TEMP 37.1
[2025-05-25 06:33] LABS: Hematocrit 30.1 % (33.0-51.0); Hemoglobin* 9.9 gm/dL (12.0-16.0); Immature Granulocytes Abs Auto 0.01 K/uL (0.00-0.30); Immature Granulocytes Pct Auto 0.2 %; Mean Corpuscular HGB Conc 33 gm/dL (32-36); Mean Corpuscular Hemoglobin 30 pg (26-34); Mean Corpuscular Volume 92 fL (80-100); RDW Coefficient of Variation % 12.7 % (11.5-15.5); Red Blood Count 3.26 m/uL (4.00-5.20); White Blood Count* 5.95 K/uL (4.50-11.00)
--- NOTE | 2025-05-25 06:34 | PC.NURSE ---
Shift note: Patient was doing well at the start of the shift at 2300. Vital signs at that time were stable. At 0330, patient has a temperature of 100. At that time, patient reported mild nausea and requested to go the BR. Tylenol was given. Temperature rechecked at 0500?was 98.8. Nausea subside at assessment after the Tylenol. Patient is alert and oriented and independent in room. She asked SCD to be removed at 0330. Patient is pleasant, alert and oriented. Independent in room.
[2025-05-25 06:43] LABS: Chloride* 105 mmol/L (96-114); Lymphocytes Absolute Auto 1.10 K/uL (0.90-2.90); Potassium* 4.0 mmol/L (3.6-5.1); Slide Review Reflex No; Sodium* 134 mmol/L (135-149)
[2025-05-25 06:46] LABS: Blood Urea Nitrogen* 7 mg/dL (5-24); Creatinine* 0.9 mg/dL (0.5-1.5); Est. Creatinine Clearance* 92.56; Estimated Glomerular Filt Rate 93 ml/min
[2025-05-25 06:47] LABS: Anion Gap 3 mEq/L (7-15); Calcium* 8.5 mg/dL (8.4-10.6); Carbon Dioxide* 26 mmol/L (20-32); Glucose* 94 mg/dL (60-115)
[2025-05-25 07:00] VITALS: BP 131/81; PULSE 81; RESP 18; TEMP 36.8; O2SAT 95
[2025-05-25] MEDS: LACTOBACILLUS ACIDOPHILUS 1 TABLET 2 TAB PO ×2 (08:08→12:16)
[2025-05-25] MEDS: ESCITALOPRAM 10 MG TABLET 5 MG PO (09:13)
[2025-05-25] MEDS: ERTAPENEM 1 GM in 0.9 % SODIUM CHLORIDE Mini-bag 100 ML IVPB (09:19)
[2025-05-25] MEDS: SODIUM CHLORIDE 0.9 % (FLUSH) 10 ML SYRINGE 5 ML IVF (10:07)
[2025-05-25 11:00] VITALS: BP 132/82; PULSE 74; RESP 18; TEMP 37.2; O2SAT 97
--- NOTE | 2025-05-25 13:14 | PM.DS1 ---
DS: Providers Provider Date Seen: 05/25/25 Date of admission: 05/22/25 12:00 Primary care physician: Not a Local Provider Admitting Clinician: Anna Noble MD Attending Physician on discharge: Anna Noble MD Date of Discharge: 05/25/25 DS: Diagnosis Discharge Diagnosis (1) Pyelonephritis: Status: Acute Problem details: - presented with fever, hypotension, tachycardia in ER, shaking rigors; + pyelonephritis on imaging - reassuring lactate, blood culture currently NGTD - urine culture + for ESBL; transitioned from Ceftriaxone (05/22-05/23) to Ertapenem (05/24) - reviewed with ID on 05/25: will discharge on IV Ertapenem for a total of 7 days of therapy DS: Summary Hospital Course Hospital Course: Arsen is a 19 yo female with history of UTI who was admitted to the hospital on 05/22 for pyelonephritis; presented with rigors, fever, tachycardia, hypotension. Recently treated for an E coli UTI (05/09/25) with oral Macrobid. Upon admission, treated with IV ceftriaxone and IV fluids. Urine culture resulted on 05/24 as ESBL; sensitive to Ertapenem, Meropenem, Macrobid, and Zosyn. Blood culture remained NGTD. Had fevers throughout stay, these improved and she was afebrile day of discharge. VS normalized, slowly advanced diet. Appropriate for d/c with mom on 05/25; will return for outpatient IV antibiotics to complete 7 day course of Ertapenem as recommended by ID. Status at Discharge Functional status at discharge: independent ambulation Overall status at discharge: patient is progressing back to baseline Time Spent with Patient Time attestation: Total time spent providing and/or coordinating discharge services: Time spent: Greater than 30 minutes Specific discharge activities: Med rec, education Exam Narrative: Exam Narrative: GEN: Alert and oriented, nontoxic HEENT: EOMIs bilaterally, no scleral icterus CV: RRR, No concerning murmurs R: LCTA bilaterally without concerning wheezing Ext: Nonpitting edema of hands and feet noted, symmetric Skin: No concerning skin lesions or rashes on exposed skin Neuro: No focal deficits Psych: Appropriate Const: Vital Signs, click to edit/add: Vital Signs - 24 hr 05/24/25 15:00 05/24/25 16:09 05/24/25 17:50 Temperature 102.3 F H 102.3 F H 99.5 F Pulse Rate [Right Pulse Oximeter] 108 H Respiratory Rate 18 Blood Pressure [Le ft Arm] Blood Pressure [Ri ght Arm] 142/87 H Pulse Oximetry 99 Oxygen Delivery Me thod Room Air 05/24/25 19:00 05/24/25 23:00 05/24/25 23:00 Temperature 98.4 F 98 F Pulse Rate [Right Pulse Oximeter] 99 64 64 Respiratory Rate 16 16 16 Blood Pressure [Le ft Arm] 129/77 Blood Pressure [Ri ght Arm] 119/65 Pulse Oximetry 98 99 Oxygen Delivery Me thod Room Air Room Air 05/25/25 03:00 05/25/25 03:37 05/25/25 05:06 Temperature 100 F H 100 F H 98.8 F Pulse Rate [Right Pulse Oximeter] 99 Respiratory Rate 16 Blood Pressure [Le ft Arm] Blood Pressure [Ri ght Arm] 135/78 Pulse Oximetry 95 Oxygen Delivery Me thod Room Air 05/25/25 05:08 05/25/25 07:00 05/25/25 11:00 Temperature 98.8 F 98.3 F 98.9 F Pulse Rate [Right Pulse Oximeter] 81 74 Respiratory Rate 18 18 Blood Pressure [Le ft Arm] Blood Pressure [Ri ght Arm] 131/81 132/82 Pulse Oximetry 95 97 Oxygen Delivery Me thod Room Air Room Air DS: Data Data Completed and Pending Labs on day of discharge: Labs from last 24 hours 05/25/25 06:12 WBC 5.95 RBC 3.26 L Hgb 9.9 L Hct 30.1 L MCV 92 MCH 30 MCHC 33 RDW Coeff of Tristan 12.7 Plt Count 221 Neut % (Auto) 70.8 Lymph % (Auto) 19.[address] [facility] % (Auto) 8.9 Eos % (Auto) 0.3 Baso % (Auto) 0.5 Neut # (Auto) 4.21 Lymph # (Auto) 1.10 [facility] # (Auto) 0.50 Eos # (Auto) 0.02 Baso # (Auto) 0.03 Abs Immat Gran (auto) 0.01 Imm/Tot Granulo (auto) 0.2 Sodium 134 L Potassium 4.0 Chloride 105 Carbon Dioxide 26 Anion Gap 3 L BUN 7 Creatinine 0.9 Estimated Creat Clear 92.56 Estimated GFR 93 Glucose 94 Calcium 8.5 Magnesium 1.7 Preliminary micro results at discharge 05/22/25 09:20 Blood Culture - Preliminary Blood NO GROWTH AFTER 72 HOURS Discharge Plan Discharge Disposition: Home, Self-Care Date of Admission: 05/22/25 12:00 Attending Provider on Discharge: Anna Noble Consulting Providers: Gill Jean Primary Care Provider: Provider,Not a Local Condition: Improved Anticipated Discharge Date/Time: 05/25/25 12:54 Discharge Medications: New ertapenem 1 gram Recon Soln 1 g IVPB Q24H 5 Days Qty: 5 0RF Continued levocetirizine [Xyzal] 5 mg tablet 5 mg PO QDAY norethindrone ac-eth estradiol [Pam] 1.5-30 mg-mcg tablet 1 tab PO DAILY escitalopram oxalate 5 mg tablet 5 mg PO DAILY Discharge Orders: Discharge Order (Routine); Ordered 05/25/25 Ordered By: Anna Noble Patient Education: Ertapenem (By injection), Kidney Infection (ED) Additional Instructions: 5 more days of IV Ertapenem, Tylenol and Ibuprofen as needed for fevers and/or achiness. Stay hydrated, keep up on protein intake as well. Consider cranberry supplementation (best data for UTI prevention) daily. You need to feel 100% before restarting soccer practice and Meloxicam. Activity Level: No Restrictions and Activity as Tolerated Discharge Diet: Regular Follow Up Appointments: Provider,Not a Local [Primary Care Provider, Family Practice] Forms: [facility], [facility] Info Instructions
--- NOTE | 2025-05-25 14:27 | PC.NURSE ---
Pt alert and oriented. VSS. Pt denies pain. Saline lock in L forearm is wrapped in kerlix. [facility] for IV ABX infusion x 5days. Discharge instructions given to pt and parent, no further questions asked. Pt left in a wheelchair with mother.?
== END 2025-05-25 14:15 | disposition home or self-care (01) | DRG 690 ==
LOC: ED 11:20 → MEDSURG 11:52
PROVIDERS: Admitting Provider Family Medicine; Emergency Provider Internal Medicine; Visit Provider Family Medicine
DX: N10 Acute pyelonephritis (principal); Z16.12 Extended spectrum beta lactamase (ESBL) resistance; B96.29 Other Escherichia coli [E. coli] as the cause of diseases classified elsewhere; F41.9 Anxiety disorder, unspecified; M92.529 Juvenile osteochondrosis of tibia tubercle, unspecified leg
CPT/HCPCS: 36415; 74177; 80048; 80053; 81001; 81025; 83605; 83735; 85025; 87040; 87086; 99283; 99284; 99285; A9270; J0696; J1335; J1650; J1885; J7030; J7050; J7120; Q9967